=== PATIENT | male | born 1940 | race Caucasian/White ===

== ENCOUNTER → 2018-03-27 09:31 | Outpatient (CLI) | payer MEDICARE, BC, SELFPAY ==
[2018-03-27 11:20] LABS: Absolute Basophil Count 0.03 k/cumm (0.0-0.2); Absolute Eosinophil Count 0.06 k/cumm (0.0-0.7); Absolute Monocyte Count 0.33 k/cumm (0.11-0.7); Absolute Neutrophil Count 2.21 k/cumm (1.2-6.7); Basophils % 0.8; Eosinophils % 1.5; HCT 40.8 % (40.0-50.0); HGB 14.2 g/dL (13.5-17.5); Lymphocytes % 33.1; Mean Corp. HGB Concentration 34.8 g/dL (32.0-36.0); Mean Corpuscular Hemoglobin 32.1 pg (27.0-33.0); Mean Corpuscular Volume 92.1 fL (80-95); Mean Platelet Volume 10.3 fL (8.0-11.0); Monocytes % 8.4; Neutrophils % 56.2; Platelet Count 164 x1000/uL (130-400); RBC 4.43 m/cumm (4.50-6.00); RBC Distribution Width 12.8 % (11.8-14.1); White Blood Cell Count 3.93 k/cumm (4.4-10.8)
[2018-03-27 11:39] LABS: ALT 28 U/L (12-78); AST 28 U/L (15-37); Albumin 3.9 g/dL (3.4-5.0); Alkaline Phosphatase 54 U/L (46-116); Anion Gap 7.4 mmol/L (3-11); BUN 12 mg/dL (7-18); Bilirubin, Total 0.8 mg/dL (0.2-1.0); CO2 29.6 mmol/L (21.0-32.0); CREATININE 0.89 mg/dL (0.70-1.30); Calcium 8.7 mg/dL (8.5-10.1); Chloride 103 mmol/L (98-107); Glucose 93 mg/dL (70-100); Potassium 4.3 mmol/L (3.5-5.1); Sodium 140 mmol/L (136-145); Total Protein 6.9 g/dL (6.4-8.2)
== END ==
PROVIDERS: PCP Internal Medicine; Visit Provider Internal Medicine
DX: D64.9 Anemia, unspecified (principal)
CPT/HCPCS: 36415; 80053; 85025

== ENCOUNTER → 2018-08-30 10:43 | Outpatient (BNVA) | payer MEDICARE, BC, SELFPAY | PROVIDERS: PCP Internal Medicine; Referring Provider Internal Medicine; Visit Provider Student in an Organized Health Care Education/Training Program | DX: M17.12 Unilateral primary osteoarthritis, left knee (principal) | CPT/HCPCS: 20610; 99213; J1040 ==

== ENCOUNTER 2019-04-02 10:34 | Outpatient (CLI) | payer MEDICARE, BC, SELFPAY ==
[2019-04-03 10:21] LABS: PSA, Screening 4.3 ng/ml (0-6.5)
== END 2019-04-02 10:54 ==
PROVIDERS: PCP Internal Medicine; Visit Provider Internal Medicine
DX: Z00.00 Encounter for general adult medical examination without abnormal findings (principal); Z12.5 Encounter for screening for malignant neoplasm of prostate
CPT/HCPCS: 36415; 84153

== ENCOUNTER → 2019-09-03 14:44 | Outpatient (BNVA) | payer MEDICARE, BC, SELFPAY | PROVIDERS: PCP Internal Medicine; Referring Provider Internal Medicine; Visit Provider Student in an Organized Health Care Education/Training Program | DX: M17.12 Unilateral primary osteoarthritis, left knee (principal) | CPT/HCPCS: 99213 ==

== ENCOUNTER → 2020-06-17 14:35 | Outpatient (BNVA) | payer MEDICARE, BC, SELFPAY | PROVIDERS: PCP Nurse Practitioner; Referring Provider Nurse Practitioner; Visit Provider Nurse Practitioner Gerontology | DX: N40.1 Benign prostatic hyperplasia with lower urinary tract symptoms (principal); R35.0 Frequency of micturition; R33.8 Other retention of urine | CPT/HCPCS: 81003; 99204; 99215 ==

== ENCOUNTER 2020-06-17 16:44 | Outpatient (REF) | payer MEDICARE, BC, SELFPAY ==
[2020-06-19 13:27] LABS: Free PSA/PSA Ratio 0.26 ratio
[2020-06-20 10:55] LABS: PSA, Screening 4.2 ng/mL (0-6.5)
== END 2020-06-17 17:04 ==
LOC: LBN 16:44
PROVIDERS: Urology; PCP Nurse Practitioner; Visit Provider Nurse Practitioner Gerontology
DX: N40.1 Benign prostatic hyperplasia with lower urinary tract symptoms (principal); R35.0 Frequency of micturition
CPT/HCPCS: 84153; 84154

== ENCOUNTER 2020-08-21 02:31 | Outpatient (CLI) | payer MEDICARE, BC, SELFPAY ==
[2020-08-22 15:25] LABS: COVID-19 RT-PCR Result NEGATIVE (Negative)
== END 2020-08-21 02:51 ==
PROVIDERS: PCP Nurse Practitioner; Visit Provider Urology
DX: Z11.52 Encounter for screening for COVID-19 (principal); Z01.818 Encounter for other preprocedural examination
CPT/HCPCS: U0003

== ENCOUNTER 2020-08-25 09:48 | Inpatient (IN) | payer MEDICARE, BC, SELFPAY ==
[2020-08-25] VITALS (9 sets, daily range): BP systolic 100–132; BP diastolic 53–76; PULSE 55–90; RESP 10–18; TEMP 35.4–36.7; O2SAT 94–98
--- NOTE | 2020-08-25 10:28 | W.PM.HP.N ---
Assessment and Plan Assessment and plan (1) Urinary retention due to benign prostatic hyperplasia: Status: Acute Assessment and plan: For cystoscopy with transurethral resection of prostate. We will plan on keeping him in the hospital overnight for continuous bladder irrigation. History of Present Illness History of Present Illness Chief Complaint: BPH with LUTS Narrative: Frederic is a 80-year-old male referred to urology by [facility] for BPH with LUTS. Patient has had history of treatment with alpha blockers that has caused him dizziness. Prior to his alpha arjun use he was on Proscar by Dr. Rivera in the early to mid 1999. He notes that he had side effects from the Proscar. He does not remember what they were. He notes that he also had a prostate biopsy due to the elevated PSA numbers. He notes a biopsy was probably in 2008 or . He knows that it was negative for any kind of prostate cancer. He states since then his PSA numbers have been below 5. He is unsure what his PSA number was prior or at the time of his prostate biopsy. He states he is here mainly to discuss a TURP or other related options that can be done to help with his urinary frequency, urgency, slow stream, feeling of incomplete emptying, and nocturia. He does note that he does drink a great deal of coffee first thing in the morning and that if he does drink lots of liquids before bed he will pay for it during the nighttime. Even with reducing his coffee and cutting his fluids off well before bedtime he will still have LUTS that are bothersome. Review of Systems Constitutional Comments: No fevers or chills No vision change or dysphasia No diabetes or thyroid No shortness of breath, cough or hemoptysis No chest pain or palpitations No nausea, vomiting, hepatitis, ulcers, jaundice, diarrhea or constipation No seizures, strokes or peripheral neuropathy No bleeding disorders or anemia No gout or arthralgia [facility] Medical History Family history of diabetes mellitus (06/15/13) Idiopathic scoliosis Primary osteoarthritis of left knee (02/21/17) No treatment now. Raised prostate specific antigen (06/06/12) Surgical History Appendectomy Arthroplasty of knee LEFT S/P cataract surgery November 2019 bilaeral Tonsillectomy and adenoidectomy Family History FAMILY HISTORY Diabetes Hyperlipidemia Mother , age 61 Diabetes Father , age 87 Depression Sister , age 70 No problems noted. Brother No problems noted. Maternal Grandfather , age 79 Heart disease Paternal Grandfather , age74 Heart disease Maternal Grandmother No problems noted. Paternal Grandmother , age 89 No problems noted. Son No problems noted. Social History Smoking/Tobacco Use Status: Former Tobacco Use Tobacco: How many years used: 3 Smoking risk assessment performed?: Yes Alcohol Intake: current Alcohol Intake frequency: holidays/special occasions only Drug use: Never Caregiver/Support person: No Household members: none Communication Needs: None Pets and animals: No Sexually active: Yes Do you think of yourself as: straight/heterosexual Current gender identity: male How often do you talk on the phone with friends or family?: twice per week How often do you get together with friends or relatives?: once per week How often do you attend episcopal or methodist services?: decline to answer Do you belong to any clubs or organized social groups?: yes Panel score (0-1 are the most socially isolated patients): 2 What type of physical activity do you participate in: weight lifting Duration: > 90 minutes/day Frequency: 3-4 times per week Rhina/Muslim: None Special rhina needs: No Seatbelt use: always Helmet use: Yes Helmet use: always Drive intox 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 Meds Home Medications and Allergies Home Medications Medication Instructions Recorded Confirmed Type glucosamine snowden 2KCl-chondroit 1 cap PO DAILY 12/08/12 08/25/20 History multivitamin 1 tab PO DAILY 12/08/12 08/25/20 History omega 2-qxe-yfe-fish oil 1 cap PO DAILY 12/08/12 08/25/20 History coenzyme Q10 [Co Q-10] 100 mg PO DAILY 05/19/15 08/25/20 History sildenafil 25 mg tablet 25 mg PO DAILY PRN #30 tab 04/10/20 08/25/20 Rx Allergies Allergy/AdvReac Type Severity Reaction Status Date / Time finasteride [From Proscar] AdvReac Unknown Verified 08/25/20 10:26 tamsulosin HCl [From Flomax] AdvReac dizziness Verified 08/25/20 10:26 Exam Const General: cooperative, comfortable and no acute distress Neck Neck: supple Resp Effort & Inspection: normal respiratory effort Auscultation: clear to auscultation bilaterally Cardio Rate: regular rate Rhythm: regular rhythm GI Palpation: soft and no masses Neuro General: patient alert, patient awake and patient oriented x3 COVID-19 Screening Have you, or household traveled for leisure in last 14 days?: No Had IN PERSON contact w/suspected or confirmed C-19 person: No
[2020-08-25] MEDS: Lactated Ringers 1,000 ML 80 ML IV ×2 (11:07→14:00)
[2020-08-25] MEDS: ceFAZolin 2 GM/50 ML BAG IVPB (11:30)
[2020-08-25] MEDS: Lidocaine 2% Jelly 6 ML SYR (11:42)
--- NOTE | 2020-08-25 13:00 | PROST_PTH ---
PATIENT: Frederic Randall LOC: U#:[id number] AGE/SX: 80/M ROOM: [id number] RE08/25/[address]: Bayron Liu MD : [id number] BED: A DIS: 08/27/2020 SPEC #: [id number] RECD: 08/25/20 13:20 STATUS: FREDERICK REQ #: [id number] COURT: 08/25/20 13:[address]: Bayron Liu DEPT: Surgical Specimen RECD BY: Yazmin Jaimes ENTERED: 08/25/20 13:22 SP TYPE: PROST OTHR DR: Heidi Feliciano, PhD STONE CIRCULAR SAWYER Tissues: 1 - PROSTATE CURRETTINGS Procedures: GROSS AND MICRO LEVEL 4 IMMUNOPEROXIDASE STAIN Comments: [id number]
--- NOTE | 2020-08-25 13:22 | ROE_ITS ---
Date of service: 08/25/20 Time of Service: 13:23 Operative Note Operative Note DATE OF PROCEDURE: 08/25/20 PRE-OP DIAGNOSIS: BPH with LUTS POST-OP DIAGNOSIS: same PROCEDURE: cystoscopy with TURP/vaporization of prostate SURGEON: Bayron Liu ANESTHESIA: spinal ESTIMATED BLOOD LOSS: 300 PATHOLOGY: other (prostate chiops) Patient was transported to: PACU Patient's condition: stable Implants: 24 Congolese arana catheter with 50 cc sterile water in balloon Indications: This is a 80-year-old gentleman who has a history of lower urinary tract symptoms. He has been unable to tolerate alpha blockers or 5 alpha reductase inhibitors. Symptoms have progressed and have become problematic for him. He presents for transurethral resection of the prostate. Findings: Diffusely enlarged prostate with the left lobe larger than the right Procedure Description: The patient was brought to the operating room on 08/25/2020. After successful induction of spinal anesthesia, he was placed in the dorsal lithotomy position. His genitalia was prepped and draped. 2% Xylocaine jelly was then instilled into the urethra to act as a local anesthetic. A 22 Congolese rigid cystoscope was passed through the urethra into the bladder. Urethra and bladder were inspected with a 30 degree lens. The pendulous, bulbous and membranous urethra was all appeared normal with no strictures. The prostatic urethra showed lateral lobe enlargement with the left lobe being quite a bit larger than the right. The bladder neck was entered and the bladder mucosa was inspected. The bladder was trabeculated with multiple diverticuli and cellules present. No mucosal lesions based lesions were seen. The cystoscope was withdrawn and a 24 Congolese resectoscope sheath was then passed through the urethra into the bladder. We used an [employer] resectoscope and bipolar cautery to resect the prostate from the bladder neck out to the verumontanum. The depth of the resection was down to the prostatic capsule. As we approached the capsule, we switched over to the plasma button and vaporize the tissue for improved hemostasis. All resected tissue was evacuated and sent to pathology for permanent section. The bladder was filled with irrigant and the resectoscope was removed. A 24 Congolese hematuria catheter was passed through the urethra into the bladder. The catheter balloon was inflated with 50 cc of sterile water. Continuous bladder irrigation was begun. Traction was placed on the catheter until the irrigant became clear. A belladonna and opium suppository was placed in the patient's rectum. The patient tolerated this procedure well with no complications. He was taken to the recovery room in stable condition.
[2020-08-25] MEDS: ceFAZolin 1 GM/50 ML BAG IVPB (20:02)
[2020-08-26] MEDS: ceFAZolin 1 GM/50 ML BAG IVPB (04:09)
[2020-08-26] MEDS: Lactated Ringers 1,000 ML 125 ML IV ×4 (06:09→22:32)
[2020-08-26 06:30] LABS: HGB 11.4 g/dL (13.5-17.5); MCH 31.4 pg (27.0-33.0); MCHC 34.5 % (32.0-36.0); MCV 90.9 fL (80-95); MPV 10.6 fL (8.0-11.0); Platelet Count 178 10^3/uL (130-400); RBC 3.63 10^6/uL (4.36-5.78); RDW 12.2 % (11.8-14.1); WBC 10.91 10^3/uL (4.4-10.8)
[2020-08-26 06:51] LABS: Anion Gap 7.9 mmol/L (3-11); BUN 19 mg/dL (7-18); CO2 27.1 mmol/L (21.0-32.0); CREATININE 0.85 mg/dL (0.70-1.30); Calcium 8.3 mg/dL (8.5-10.1); Chloride 104 mmol/L (98-107); Glucose 152 mg/dL (74-106); Potassium 4.2 mmol/L (3.5-5.1); Sodium 139 mmol/L (136-145)
[2020-08-26 07:37] VITALS: BP 123/70; PULSE 72; RESP 18; TEMP 36; O2SAT 98
--- NOTE | 2020-08-26 07:53 | DSE_ITS ---
Date of service: 08/26/20 Time of Service: 07:54 DS: Diagnosis Discharge Diagnosis (1) Urinary retention due to benign prostatic hyperplasia: Status: Acute Discharge Plan Disposition Patient Disposition: HOME Condition: Stable Discharge Details Reason For Visit: BPH WITH LUTS Admit Date/Time: 08/25/20 09:48 Admit Provider: Bayron Liu Attending Provider: Bayron Liu Primary Care Provider: Heidi Feliciano Hospital Course Hospital Course: The patient was admitted and taken to the operating room on 08/25/2020 where he underwent cystoscopy and transurethral resection of the prostate. Following the procedure, he was hospitalized for continuous bladder irrigation overnight. On postop day #1, the irrigant was a light pink. His catheter was hand irrigated for very small clot. We discontinued the continuous bladder irrigation and he will be discharged later today as long as his urine remains transparent. His lab studies on postoperative day #1 including his hemoglobin and his renal function were normal. Home Meds and New Rx's Prescriptions: New sulfamethoxazole-trimethoprim [Bactrim DS] 800-160 mg tablet 1 tab PO QHS Qty: 5 RF: 0 No Action sildenafil 25 mg tablet 25 mg PO DAILY PRN (Reason: sexual activity) Qty: 30 RF: 3 multivitamin 1 EACH tablet 1 tab PO DAILY RF: 0 omega 7-yvx-ioc-fish oil 1,000 MG capsule 1 cap PO DAILY RF: 0 glucosamine snowden 2KCl-chondroit 1 EACH tablet 1 cap PO DAILY RF: 0 coenzyme Q10 [Co Q-10] 100 MG capsule 100 mg PO DAILY RF: 0 Discharge Instructions Additional Instructions: Follow-up in 2 to 5 days for catheter removal (nurse visit) Follow-up appointment in 1 to 2 weeks to review pathology and postop visit Vasquez to leg bag Script for antibiotic sent to local pharmacy Activity:: No lifting over 10 to 20 Equipment/Supplies:: Vasquez to leg bag Diet:: As Tolerated Discharge Data Discharge Comment: Cancel discharge for today if need to restart CBI DS: Summary Status at Discharge Functional status at discharge: independent ambulation Overall status at discharge: patient is progressing back to baseline Mental Status: mental status grossly normal Speech and Movement: speech and movement normal Mood: congruent mood Affect: normal affect Exam Narrative Exam Narrative: On postoperative day #1, he looks well, His vital signs are documented elsewhere His chest wall motion is normal His abdomen is soft with no guarding or rebound tenderness I hand irrigated his catheter and only 1 small clot was obtained He is awake and alert. Psych Mental Status: mental status grossly normal Speech and Movement: speech and movement normal Mood: congruent mood Affect: normal affect DS: Data Vitals/I&O Vitals and I&O: Vital Signs Temperature 36.0 C L 08/26/20 07:37 Temperature Source Tympanic 08/26/20 07:37 Pulse 72 08/26/20 07:37 Pulse Rhythm Regular 08/26/20 04:42 Respiratory Rate 18 08/26/20 07:37 Respiratory Effort Non-Labored 08/26/20 04:42 Respiratory Depth Normal 08/26/20 04:42 Respiratory Pattern Normal 08/26/20 04:42 Blood Pressure 123/70 08/26/20 07:37 Pulse Oximetry 98 08/26/20 07:37 Oxygen Delivery Method Room Air 08/26/20 07:37 Oxygen Flow Rate 0 08/26/20 07:37 Pain Level 0 08/26/20 07:37 Intake & Output 08/25/20 08/25/20 08/26/20 11:59 23:59 11:59 Intake Total 50 / 1540 1490 / 1540 768.75 / 768.75 Balance 50 / 1540 1490 / 1540 768.75 / 768.75 Weight 85.8 kg Intake: IV 50 / 1300 1250 / 1300 768.75 / 768.75 Oral 240 / 240 Other: Urine Color Gibson Dark Red Bright Red Urine Appearance Clear Hematuria Hematuria Comment running consistently gibson red, no patient complaints Emesis Description None Data Completed and Pending Labs on day of discharge: Labs from last 24 hours 08/26/20 08/26/20 06:15 06:15 WBC 10.91 H RBC 3.63 L Hgb 11.4 L Hct 33.0 L MCV 90.9 MCH 31.4 MCHC 34.5 RDW 12.2 Plt Count 178 MPV 10.6 Sodium 139 Potassium 4.2 Chloride 104 Carbon Dioxide 27.1 Anion Gap 7.9 BUN 19 H Creatinine 0.85 Estimated GFR/1.73 m2 >= 60.00 Glucose 152 H Calcium 8.3 L PFSH Medical History Family history of diabetes mellitus (06/15/13) Idiopathic scoliosis Primary osteoarthritis of left knee (02/21/17) No treatment now. Raised prostate specific antigen (06/06/12) Surgical History Appendectomy Arthroplasty of knee LEFT S/P cataract surgery November 2019 bilaeral Tonsillectomy and adenoidectomy Family History FAMILY HISTORY Diabetes Hyperlipidemia Mother , age 61 Diabetes Father , age 87 Depression Sister , age 70 No problems noted. Brother No problems noted. Maternal Grandfather , age 79 Heart disease Paternal Grandfather , age74 Heart disease Maternal Grandmother No problems noted. Paternal Grandmother , age 89 No problems noted. Son No problems noted. Social History Smoking/Tobacco Use Status: Former Tobacco Use Tobacco: How many years used: 3 Smoking risk assessment performed?: Yes Alcohol Intake: current Alcohol Intake frequency: holidays/special occasions only Drug use: Never Caregiver/Support person: No Household members: none Communication Needs: None Pets and animals: No Sexually active: Yes Do you think of yourself as: straight/heterosexual Current gender identity: male How often do you talk on the phone with friends or family?: twice per week How often do you get together with friends or relatives?: once per week How often do you attend taoist or episcopal services?: decline to answer Do you belong to any clubs or organized social groups?: yes Panel score (0-1 are the most socially isolated patients): 2 What type of physical activity do you participate in: weight lifting Duration: > 90 minutes/day Frequency: 3-4 times per week Rhina/Anabaptism: None Special rhina needs: No Seatbelt use: always Helmet use: Yes Helmet use: always Drive intox or ride w/intox 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
[2020-08-26] MEDS: Docusate Sodium 100 MG CAP PO ×2 (08:40→19:52)
[2020-08-26 15:35] VITALS: BP 105/63; PULSE 76; RESP 20; TEMP 36.7; O2SAT 99
--- NOTE | 2020-08-26 18:53 | PDOC.CMIN ---
- If Service Date Differs Date of service: 08/26/20 Time of Service: 18:53 Care Management Initial Assess REASON FOR HOSPITALIZATION:: BPH with LUTS PAST MEDICAL HISTORY/PAST SURGICAL HISTORY:: Medical History. Family history of diabetes mellitus (06/15/13). Idiopathic scoliosis. Primary osteoarthritis of left knee (02/21/17). No treatment now. Raised prostate specific antigen (06/06/12). Surgical History. Appendectomy. Arthroplasty of knee. LEFT. S/P cataract surgery. November 2019 bilaeral. Tonsillectomy and adenoidectomy PREVIOUS FUNCTIONAL STATUS/SOCIAL/FAMILY SUPPORTS:: Frederic lives in [facility]. He has two children, one lives in [place] and one in [place]. Both of his children are supportive. He also has a administrative secretary, who he identifies as a local support. 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 He is independent at baseline. CURRENT FUNCTIONAL STATUS:: Frederic was sitting up in his chair when CM met with him. He stated that he was tired and wanted to rest, but was willing to have a quick conversation. He stated that he spoke with Dr. Liu, who reported that he would remain at [facility] overnight, and would discharge tomorrow. He was happy with this plan. He stated that he has received excellent care at [facility]. CM will continue to follow. ADVANCE DIRECTIVES:: None on file. Has patient been provided with info about the portal/API?: No Did the patient sign up for the portal?: No CODE STATUS:: Full Code INSURANCE COVERAGE / FINANCIAL ISSUES:: [facility]/BC[facility] CURRENT HOME/COMMUNITY SERVICES/EQUIPMENT:: No current services or equipment at this time. PRIMARY CARE PHYSICIAN:: Heidi Feliciano POTENTIAL DISCHARGE NEEDS:: Follow up appointments PATIENT/FAMILY EDUCATION NEEDS:: Review discharge instructions, discussion of self care needs including ask me three. ANTICIPATED BARRIERS TO DISCHARGE:: None identified. TRANSPORTATION:: Via private vehicle. PLAN:: Frederic will return home when medically cleared, likely tomorrow. He will be driven home via private vehicle. He will follow up with Urology and his discharge plan of care. CM will continue to follow.
[2020-08-26 22:45] VITALS: BP 130/62; PULSE 67; RESP 18; TEMP 36.5; O2SAT 95
[2020-08-27 05:41] VITALS: BP 100/57; PULSE 64; RESP 18; TEMP 36.4; O2SAT 98
[2020-08-27] MEDS: Lactated Ringers 1,000 ML 125 ML IV (06:23)
[2020-08-27 07:24] VITALS: BP 113/62; PULSE 71; RESP 18; TEMP 36.9; O2SAT 97
[2020-08-27] MEDS: Docusate Sodium 100 MG CAP PO (08:23)
--- NOTE | 2020-08-27 10:46 | DSE_ITS ---
DS: Diagnosis Discharge Diagnosis (1) Urinary retention due to benign prostatic hyperplasia: Status: Acute Discharge Plan Disposition Patient Disposition: HOME Condition: Stable Discharge Details Reason For Visit: BPH WITH LUTS Admit Date/Time: 08/25/20 09:48 Admit Provider: Bayron Liu Attending Provider: Bayron Liu Primary Care Provider: [facility] Course Hospital Course: The patient was admitted and taken to the operating room on 08/25/2020 where he underwent cystoscopy and transurethral resection of the prostate. Following the procedure, he was hospitalized for continuous bladder irrigation overnight. On postop day #1, the irrigant was a light pink. His catheter was hand irrigated for very small clot. We discontinued the continuous bladder irrigation and he will be discharged later today as long as his urine remains transparent. His lab studies on postoperative day #1 including his hemoglobin and his renal function were normal. Once we discontinued the bladder irrigation, his urine became dark so we restarted the bladder irrigation for an additional 24 hours. When the urine remains transparent on postoperative day #2, I removed the Vasquez catheter. We will discharge him to home after he voids today. Home Meds and New Rx's Prescriptions: New sulfamethoxazole-trimethoprim [Bactrim DS] 800-160 mg tablet 1 tab PO QHS Qty: 5 RF: 0 No Action sildenafil 25 mg tablet 25 mg PO DAILY PRN (Reason: sexual activity) Qty: 30 RF: 3 multivitamin 1 EACH tablet 1 tab PO DAILY RF: 0 omega 7-wkc-orj-fish oil 1,000 MG capsule 1 cap PO DAILY RF: 0 glucosamine snowden 2KCl-chondroit 1 EACH tablet 1 cap PO DAILY RF: 0 coenzyme Q10 [Co Q-10] 100 MG capsule 100 mg PO DAILY RF: 0 Discharge Instructions Instructions: Enlarged Prostate (BPH) (GEN), Urinary Tract Infection in Men (GEN), Vasquez Catheter Placement and Care (GEN), Urinary Leg Bag (GEN) Additional Instructions: Follow-up appointment in 1 to 2 weeks to review pathology and postop visit Script for antibiotic sent to local pharmacy Stand Alone Forms: Nursing Discharge Form Referrals: UROLOGY,[facility] [OTHER] - 08/28/20 8:00 am (Nurse visit, catheter removal.) Bayron Liu MD [ [facility] STAFF PHYSICIAN] - 09/09/20 3:00 pm Activity:: No lifting over 10 to 20 Equipment/Supplies:: Vasquez to leg bag Diet:: As Tolerated Discharge Orders Discharge Orders: Discharge Order (Routine); Ordered 08/27/20 Ordered By: Bayron Liu Discharge Data Discharge Comment: Cancel discharge for today if need to restart CBI DS: Summary Status at Discharge Functional status at discharge: independent ambulation Overall status at discharge: patient is progressing back to baseline Mental Status: mental status grossly normal Speech and Movement: speech and movement normal Mood: congruent mood Affect: normal affect Exam Psych Mental Status: mental status grossly normal Speech and Movement: speech and movement normal Mood: congruent mood Affect: normal affect DS: Data Vitals/I&O Vitals and I&O: Vital Signs Temperature 36.9 C 08/27/20 07:24 Temperature Source Tympanic 08/27/20 07:24 Pulse 71 08/27/20 07:24 Pulse Rhythm Regular 08/27/20 09:59 Respiratory Rate 18 08/27/20 07:24 Respiratory Effort Non-Labored 08/27/20 09:59 Respiratory Depth Normal 08/27/20 09:59 Respiratory Pattern Normal 08/27/20 09:59 Blood Pressure 113/62 08/27/20 07:24 Pulse Oximetry 97 08/27/20 07:24 Oxygen Delivery Method Room Air 08/27/20 07:24 Oxygen Flow Rate 0 08/27/20 07:24 Pain Level 0 08/27/20 07:24 Intake & Output 08/26/20 08/26/20 08/27/20 11:59 23:59 11:59 Intake Total 1488.75 / 3748.75 2260 / 3748.75 2231.25 / 223.25 Output Total 400 / 400 Balance 1488.75 / 3748.75 2260 / 3748.75 1831.25 / 1831.25 Intake: IV 768.75 / 2778.75 2009 2778.75 Oral 720 / 970 250 / 970 250 / 250 Output: Urine 400 / 400 Other: Urine Color [place] Urine Appearance Hematuria Hematuria Clear Comment CBI running clear pink washout, on continuous bladder irrigation on half full rate see note in 3 way Voiding Methods Urinal PFSH Medical History Family history of diabetes mellitus (06/15/13) Idiopathic scoliosis Primary osteoarthritis of left knee (02/21/17) No treatment now. Raised prostate specific antigen (06/06/12) Surgical History Appendectomy Arthroplasty of knee LEFT S/P cataract surgery November 2019 bilaeral Tonsillectomy and adenoidectomy Family History FAMILY HISTORY Diabetes Hyperlipidemia Mother , age 61 Diabetes Father , age 87 Depression Sister , age 70 No problems noted. Brother No problems noted. Maternal Grandfather , age 79 Heart disease Paternal Grandfather , age74 Heart disease Maternal Grandmother No problems noted. Paternal Grandmother , age 89 No problems noted. Son No problems noted. Social History Smoking/Tobacco Use Status: Former Tobacco Use Tobacco: How many years used: 3 Smoking risk assessment performed?: Yes Alcohol Intake: current Alcohol Intake frequency: holidays/special occasions only Drug use: Never Caregiver/Support person: No Household members: none Communication Needs: None Pets and animals: No Sexually active: Yes Do you think of yourself as: straight/heterosexual Current gender identity: male How often do you talk on the phone with friends or family?: twice per week How often do you get together with friends or relatives?: once per week How often do you attend samaritan or zoroastrianism services?: decline to answer Do you belong to any clubs or organized social groups?: yes Panel score (0-1 are the most socially isolated patients): 2 What type of physical activity do you participate in: weight lifting Duration: > 90 minutes/day Frequency: 3-4 times per week Rhina/Islam: None Special rhina needs: No Seatbelt use: always Helmet use: Yes Helmet use: always Drive 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
--- NOTE | 2020-08-27 10:50 | W.PM.PROGNOT ---
Date of Service Date of service: 08/27/20 Time of Service: 10:50 Assessment and Plan Assessment and plan (1) Urinary retention due to benign prostatic hyperplasia: Status: Acute Assessment and plan: He will be discharged later today after he voids. We can cancel tomorrow's appointment for catheter removal. He would need to follow-up in 10 to 14 days for symptom check and to review his surgical pathology. Subjective Subjective Interval history since last seen: We canceled the patient's discharge yesterday when the urine remained dark without bladder irrigation. We ran CBI overnight and he had no episodes of clot retention. His urine has been intermittently dark versus later without bladder irrigation. He is due to have his catheter removed tomorrow in the office, and he is asking if he might be able to have his catheter removed today before discharge. Exam Narrative Exam Narrative: He is in no current distress. He is cooperative. His vital signs are documented elsewhere His urine is pink-tinged but transparent. I went ahead and removed his Vasquez catheter here in the hospital He is awake and alert Objective Last Vital Signs Temp 36.9 C 08/27/20 07:24 Pulse 71 08/27/20 07:24 Resp 18 08/27/20 07:24 BP 113/62 08/27/20 07:24 Pulse Ox 97 08/27/20 07:24
--- NOTE | 2020-08-27 11:19 | NUR.NOTE ---
Dr. Liu at the bedside, verbal order to dc IVF, he dc foleys, ask nursing to make sure follow up appointment is scheduled, he will dc patient after he voids.Nursing Note:
--- NOTE | 2020-08-27 16:49 | PDOC.CMDIS ---
- If Service Date Differs Date of service: 08/27/20 Time of Service: 16:49 LACE Index Scoring Tool - Questions: Length of Stay (in days): 2 Acuity (Admit via E.D.?): No E.D. 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 He will be driven home via private vehicle by family. He will follow up with Urology, his PCP and discharge plan of care. He is happy to be going home. Patient/Family Education Needs: Review discharge instructions regarding activity levels and medications, discussion of self care needs including ask me three.
== END 2020-08-27 12:20 | disposition home or self-care (01) | DRG 714 ==
LOC: PDS 14:14 → MS 14:18
PROVIDERS: Admitting Provider Urology; PCP Nurse Practitioner; Visit Provider Urology
PROC: 0VT08ZZ Resection of Prostate, Via Natural or Artificial Opening Endoscopic (ICD-10-PCS; CPT 52601; principal; 2020-08-25 11:30)
DX: N40.1 Benign prostatic hyperplasia with lower urinary tract symptoms (principal); R33.8 Other retention of urine; M41.20 Other idiopathic scoliosis, site unspecified; Z96.652 Presence of left artificial knee joint
CPT/HCPCS: 52601; 36415; 80048; 85027; 88300; 88305; NC; 88361; J0690; J1100; J1885; J2405; J2704

== ENCOUNTER → 2020-09-09 14:59 | Outpatient (BNVA) | payer MEDICARE, BC, SELFPAY | PROVIDERS: PCP Nurse Practitioner; Referring Provider Nurse Practitioner; Visit Provider Urology | DX: Z48.816 Encounter for surgical aftercare following surgery on the genitourinary system (principal); N40.1 Benign prostatic hyperplasia with lower urinary tract symptoms; R33.8 Other retention of urine ==

== ENCOUNTER → 2020-09-26 08:15 | Outpatient (BNVA) | payer MEDICARE, BC, SELFPAY | PROVIDERS: PCP Nurse Practitioner; Referring Provider Nurse Practitioner; Visit Provider Urology | DX: N40.1 Benign prostatic hyperplasia with lower urinary tract symptoms (principal); R33.8 Other retention of urine ==

== ENCOUNTER 2020-12-26 04:06 | Outpatient (CLI) | payer MEDICARE, BC, SELFPAY ==
--- NOTE | 2020-12-26 10:30 | DI.MRI_ITS ---
Exam(s) MR BRAIN WO EXAM: MR BRAIN WO CLINICAL HISTORY: possible TIA vs CVA affecting right side,G45.9 TECHNIQUE: Multiplanar multisequence MRI of the brain was performed. COMPARISON: No exams were available for comparison FINDINGS: There is moderate generalized cerebral There are patchy areas of abnormal signal seen in periventricular white matter sparing the corpus arabella losum on T2 weighted and FLAIR imaging consistent with microvascular ischemic changes. Additionally there is focal area of abnormal signal seen on T2 weighted and FLAIR imaging in the left thalamus. T his corresponds to an area of diffusion restriction seen on diffusion-weighted imaging with low signa l noted at the corresponding site on ADC map. Findings are consistent with a left thalamic infarctio n, the area affected measures about 9-10 millimeters in greatest diameter. The orbital and temporal bone structures appear intact as does the pituitary. Susceptibility weighted imaging shows no evidence of intracranial hemorrhage. There is normal flow void in the [place] vasculature. IMPRESSION: Diffusion restriction in left thalamus, the findings are consistent with an acute or subacute left th alamic infarct. No evidence of hemorrhage. DATA REPOSITORY:
== END 2020-12-26 04:26 ==
PROVIDERS: PCP Nurse Practitioner; Visit Provider Nurse Practitioner
DX: I63.9 Cerebral infarction, unspecified (principal)
CPT/HCPCS: 70551

== ENCOUNTER 2020-12-30 13:57 | Outpatient (CLI) | payer MEDICARE, BC, SELFPAY ==
--- NOTE | 2020-12-30 13:30 | DI.CT_ITS ---
Exam(s) CT BRAIN CTA EXAM: CT BRAIN CTA CLINICAL HISTORY: tTIA,G45.9. TECHNIQUE: Imaging Protocol: Axial CT angiography was performed with multi-slice acquisition and mu lti-planar and/or 3D reconstructions. CONTRAST MATERIAL: Intravenous: Omnipaque 350 Contrast volume:structured data in ml Intravenous: Omnipaque 350 Contrast volume:85 cc COMPARISON: MR MR BRAIN WO from 12/26/2020 FINDINGS: CT Head W/O and with IV contrast: Ventricles and Extra axial spaces: Normal in size and morphology for the patient's age. Hemorrhage: None. Cerebral parenchyma: Normal. The brain MRI showed a small area of restricted diffusion in the left thalamus. No abnormality is visible by CT. Midline shift: None. Brainstem/Cerebellum: Normal. Calvarium: Normal. Visualized Paranasal sinuses/Mastoids: Clear. Soft Tissues: Unremarkable. Enhancement: No abnormal areas of enhancement. CTA Brain W: Internal Carotid Arteries: Petrous: Normal. Cavernous: Normal. Cerebral: Normal. Middle Cerebral Arteries: Right: No aneurysm, occlusion or significant stenosis. Left: No aneurysm, occlusion or significant stenosis. Anterior Cerebral Arteries: Right: No aneurysm, occlusion or significant stenosis. Left: No aneurysm, occlusion or significant stenosis. Posterior cerebral Arteries: Right: No aneurysm, occlusion or significant stenosis. Left: No aneurysm, occlusion or significant stenosis. Vertebral Arteries: Right: No aneurysm, occlusion or significant stenosis. Left: No aneurysm, occlusion or significant stenosis. Basilar Artery: No aneurysm, occlusion or significant stenosis. IMPRESSION: 1. Normal CTA examination of the [place]. 2. Unremarkable noncontrast CT Head. RADIATION DOSE DELIVERED: LINK-TO-SR Total DLP 2,053.86mGy.cm Total DLP DATA REPOSITORY: All CT scans at this facility are submitted to the National Radiology Data Registry (NRDR) Dose Index Registry (DIR) with the [employer] (ACR). RADIATION OPTIMIZATION: All CT scans at this facility use at least one of these dose optimization te chniques: automated exposure control; mA and/or kV adjustment per patient size (includes targeted exa ms where dose is matched to clinical indication); or iterative reconstruction.
== END 2020-12-30 14:17 ==
PROVIDERS: PCP Nurse Practitioner; Visit Provider Nurse Practitioner
DX: G45.9 Transient cerebral ischemic attack, unspecified (principal)
CPT/HCPCS: 70496

== ENCOUNTER 2021-01-01 01:06 | Outpatient (CLI) | payer MEDICARE, BC, SELFPAY ==
--- NOTE | 2021-01-01 06:57 | DI.CT_ITS ---
Exam(s) CT CAROTID NECK CTA EXAM: CT CAROTID NECK CTA CLINICAL HISTORY: tia. TECHNIQUE: Imaging Protocol: Axial CT angiography was performed with multi-slice acquisition and mu lti-planar and/or 3D reconstructions. CONTRAST MATERIAL: Intravenous: Omnipaque 350 Contrast volume:structured data in ml COMPARISON: CT CT BRAIN CTA from 12/30/2020 FINDINGS: CTA NECK W: AORTIC ARCH ANATOMY: Bovine type arch configuration Anterior circulation: There is no significant stenosis at the origin of the common carotid arteries and both common carotid arteries ascend with normal luminal diameters. There is mild focal calcified plaque on the anterior wall of the left common carotid artery without significant stenosis at this level. At the level the carotid bifurcations there is some mild calcified plaque bilaterally but without significant stenosi s at these levels nor in the proximal internal carotid arteries. Both internal carotid arteries are demonstrated be patent in the upper neck and skull base bilaterally Posterior circulation: Both vertebral arteries originated conventional fashion off of the subclavian arteries without signif icant stenosis at their origins nor in the subclavian arteries proximal to the vertebral artery takeo ff points (which can result in subclavian steal syndrome). Both vertebral arteries ascend in the for amen transversarium with normal equal luminal diameters and both contribute to the formation of the b asilar artery at the skull base. There is no evidence of intraluminal thrombus nor dissection in the vertebral arteries. INTRACRANIAL: Anterior circulation: Both internal carotid arteries are demonstrated to be patent in the skull base and-carotid canals as well as within the cavernous sinuses. Supraclinoid aspect of these vessels are patent and nonaneurys mal. Both middle cerebral arteries are patent out to the sylvian fissure branches. No intraluminal thrombus nor aneurysm in these vessels evident. Both A1 segments are patent. Left is larger than th e right. Both anterior cerebral arteries are patent. There is no evidence of aneurysm at the level of the anterior communicating artery. Posterior circulation: Basilar artery is formed at the skull base by both patent vertebral arteries and the basilar artery a scends with normal luminal diameter, and no evidence of intraluminal thrombus nor dissection. Distal ly basilar artery gives off superior cerebellar arteries and above this level terminates as patent bi lateral posterior cerebral arteries. There are no obvious the posterior communicating arteries on ei ther side of the [id number]. IMPRESSION: 1. Mild atherosclerotic disease at the level of the carotid bifurcation and proximal internal caroti d arteries without no hemodynamically significant stenosis at these levels and no prominent soft plaq ue. 2. Patent vertebral arteries in the neck 3. Patent intracranial vessels as described above. Please note that the field of view of this study appears to be up to and including the icyokw-zz-Uqkq is but not above this level and therefore comment on the brain not included. There are no ring enhan cing lesions in the limited field of view which includes the posterior fossa and brain up to the leve l of the zwloec-ae-[id number]. RADIATION DOSE DELIVERED: 356.14mGy.cm Total DLP DATA REPOSITORY: All CT scans at this facility are submitted to the National Radiology Data Registry (NRDR) Dose Index Registry (DIR) with the [employer] (ACR). RADIATION OPTIMIZATION: All CT scans at this facility use at least one of these dose optimization te chniques: automated exposure control; mA and/or kV adjustment per patient size (includes targeted exa ms where dose is matched to clinical indication); or iterative reconstruction.
[2021-01-01] MEDS: Omnipaque 350 MG/ML 100 ML BTL IJ (09:02)
[2021-01-01] MEDS: Normal Saline Flush 10 ML SYR IVP (09:03)
[2021-01-01] MEDS: Normal Saline - Diluent 50 ML VIAL IV (09:03)
== END 2021-01-01 01:26 ==
PROVIDERS: PCP Nurse Practitioner; Visit Provider Nurse Practitioner
DX: G45.9 Transient cerebral ischemic attack, unspecified (principal); I65.23 Occlusion and stenosis of bilateral carotid arteries
CPT/HCPCS: 70498; J3490

== ENCOUNTER → 2021-01-06 13:28 | Outpatient (BNVA) | payer MEDICARE, BC, SELFPAY | PROVIDERS: PCP Nurse Practitioner; Referring Provider Nurse Practitioner; Visit Provider Psychiatry & Neurology Neurology | DX: I63.9 Cerebral infarction, unspecified (principal) | CPT/HCPCS: 99215 ==

== ENCOUNTER 2021-01-08 00:42 | Outpatient (CLI) | payer MEDICARE, BC, SELFPAY ==
--- NOTE | 2021-01-08 12:29 | DI.US_ITS ---
APPROVED REPORT EXAM: Comprehensive 2D, Doppler, and color-flow Echocardiogram Patient Location: Out-Patient Skip Pit Worker: Mariana Gordon RDCS (AE) Indications: CVA, TIA Other Information Study Quality: Adequate Conclusion Left Ventricle : The left ventricle is normal size. The left ventricular systolic function is normal. The left ventricular ejection fraction is within the normal range. There is normal left ventricular wall thickness. There is normal LV segmental wall motion. The left ventricular diastolic function is normal. LVEF is 62%. Right Ventricle : The right ventricle is normal size. The right ventricular systolic function is norm al. The RVSP is 25.0 mmHg. Atria : Left atrium is mildly dilated. The right atrium size is normal. Mitral Valve : Mild mitral annular calcification. Mild to moderate mitral regurgitation. Mitral regur gitation jet is eccentrically directed. No evidence of mitral valve stenosis. Great Vessels : The aortic root is normal in size. Ascending aorta is not well visualized. Aortic arc h is normal in caliber. IVC is normal in size and collapses >50% with inspiration. See remainder of study for further details. Wall motion Left Ventricle The left ventricle is normal size. The left ventricular systolic function is normal. The left ventric ular ejection fraction is within the normal range. There is normal left ventricular wall thickness. T here is normal LV segmental wall motion. The left ventricular diastolic function is normal. There is no ventricular septal defect visualized. LVEF is 62%. Right Ventricle The right ventricle is normal size. The right ventricular systolic function is normal. The RVSP is 25 .0 mmHg. Atria Left atrium is mildly dilated. The right atrium size is normal. Atrial septal aneurysm is present. Th ere is no Doppler evidence for an atrial septal defect. Aortic Valve The aortic valve is normal in structure. Aortic valve is trileaflet. There is no aortic valvular sten osis. Trace aortic regurgitation. Mitral Valve Mild mitral annular calcification. No evidence of mitral valve stenosis. Mild to moderate mitral regu rgitation. Mitral regurgitation jet is eccentrically directed. Tricuspid Valve The tricuspid valve is normal in structure. There is no tricuspid valve stenosis. Trace to mild tricu spid regurgitation. Pulmonic Valve Pulmonic valve is not well visualized. There is no pulmonic valvular stenosis. There is no pulmonic v alvular regurgitation. Great Vessels The aortic root is normal in size. Ascending aorta is not well visualized. Aortic arch is normal in c aliber. IVC is normal in size and collapses >50% with inspiration. Pericardium There is no pericardial effusion. 2D Dimensions IVSD d PLAX 0.94 cm M: 0.6-1.2 LV Vol A2C d MOD 107.0 mL LVPW d PLAX 0.95 cm M: 0.6 - 1.2 LV Vol A4C d MOD 126.9 mL LVID d PLAX 4.59 cm M: 4.2 - 5.8 LA vol/ BSA A2C s A-L 39.1 mL/m2 LVDs 2.90 cm M: 2.5 - 4.0 LA vol/ BSA A4C s A-L 20.9 mL/m2 Ao Root d 2.97 cm M: 3.1 - 3.7 LA Vol/ BSA Biplane s A-L 29.1 mL/m2 RA Area A4C 13.26 cm2 LA Area A4C s MOD 16.23 cm2 RA Vol/ BSA A4C s A-L 15.0 mL/m2 LA Area A2C s MOD 22.63 cm2 LV EF Teichholz 65.9 % LV EF A4C MOD 62.6 % LVEF (Fontenot's) 61.39 % M: 52 - 72 LV EF A2C MOD 60.0 % LV Volume 87.99 mL M: 62 - 150 LV EF Biplane MOD 61.4 % LV Volume Index 44.21 mL/m2 M: 34 - 74 SV 71.89 mL LV Vol Biplane MOD 117.1 mL SV Index 36.14 mL/m2 FS 36.10 % M-Mode TAPSE 2.45 cm (M/F) >1.7 LV Diastology MV E' medial 0.103 (>0.07 m/s) E/A Ratio 0.7 LV E/e MED 5.45 (<14) MV E Vmax 0.56 (0.4-1.3 m/s) MV E' lateral 0.111 (>0.1 m/s) MV A Vmax 0.75 (0.4-1.3 m/s) LV E/e LAT 5.05 (<14) MV E/A Ratio 0.71 MV E/E' medial 5.48 MV E/E' lateral 5.06 Aortic Valve LVOT Area 3.32 cm2 AoV Area Vmax 2.11 cm2 LVOT Vmax 1.07 m/s AoV Area/ BSA (Vmax) 1.06 cm2/m2 LVOT Mean Rivera. 0.62 m/s SUJATHA Mean Rivera. 1.72 cm2 LVOT Peak Grad 4.6 mmHg SUJATHA Mean Rivera. Index 0.86 cm2/m2 LVOT Mean Grad 1.9 mmHg AR DT 3230 msec LVOT VTI 0.232 m AR PHT 937 msec LVOT Diam s 2.05 cm AoV Vmax 1.68 m/s Velocity Ratio 0.63 AoV Mean Rivera. 1.19 m/s AoV Peak Grad 11.2 mmHg LVOT SV 76.76 mL AoV Mean Grad 6.3 mmHg AoV VTI 0.309 m AoV Area VTI 2.48 cm2 AoV Area/ BSA (VTI) 1.25 cm/m2 Mitral Valve MV DT 318 (160-240 msec) MR Vmax 4.57 m/s MV PHT 92 msec MR VTI 1.174 m MV Area PHT 2.39 cm2 MR Peak Grad 83.6 mmHg MV VTI 0.256 m MR Mean Grad 68.2 mmHg MV VTI Annulus 0.269 m MV Area VTI 3.16 (4.0-6.0 cm2) Pulmonary Valve PV Vmax 1.08 (0.5-1.5 m/s) RVOT Peak Gr. 1.93 mmHg PV Peak Grad 4.6 mmHg RVOT Mean Gr. 0.80 mmHg PV Mean Grad 2.3 mmHg RVOT VTI 0.146 m PV VTI 0.210 m RVOT Vmax 0.69 m/s Tricuspid Valve TR Peak Grad 22.0 mmHg TR Vmax 2.35 m/s RA Pressure 3.00 mmHg RVSP (TR) 25.0 mmHg
== END 2021-01-08 01:02 ==
PROVIDERS: PCP Nurse Practitioner; Visit Provider Nurse Practitioner
DX: Z86.73 Personal history of transient ischemic attack (TIA), and cerebral infarction without residual deficits (principal); I34.0 Nonrheumatic mitral (valve) insufficiency
CPT/HCPCS: 36415; 80061; 93270; 93306; 83036

== ENCOUNTER 2021-01-08 03:01 | Outpatient (CLI) | payer MEDICARE, BC, SELFPAY ==
[2021-01-08 12:24] LABS: Hemoglobin A1C 5.5 % (<5.7)
[2021-01-08 12:27] LABS: Calculated LDL 155 mg/dL (<100); Cholesterol 226 mg/dL (<200); HDL Cholesterol 59 mg/dL (40-60); Triglyceride 63 mg/dL (<150)
--- NOTE | 2021-02-10 08:39 | CER_ITS ---
Date of service: 02/10/21 Time of Service: 08:39 Cardiac Event Recorder Referring Provider:: Alessio Indications:: TIA Cardiac Event Note: This is a 30-day event recorder. It was worn for a total of 15 days. ?The patient was normal sinus rhythm for the majority of the recording with an average heart rate of 61 bpm. ?There is automatically detected 8-second run of SVT that was not reported as symptomatic. ?There are no episodes of ventricular tachycardia, no episodes of atrial fibrillation, no pauses greater than 3 seconds and no evidence of high degree heart block. ?There were 2 manually detected mail processing associate with sinus rhythm.
== END 2021-01-08 03:02 | disposition home or self-care (01) ==
LOC: LOS 03:01
PROVIDERS: PCP Nurse Practitioner; Visit Provider Psychiatry & Neurology Neurology
DX: R73.9 Hyperglycemia, unspecified (principal); N52.9 Male erectile dysfunction, unspecified
CPT/HCPCS: 36415; 80061; 83036

== ENCOUNTER 2021-01-08 03:57 | Outpatient (CLI) | payer MEDICARE, BC, SELFPAY | END 2021-01-08 03:58 | disposition home or self-care (01) | LOC: RT 03:58 | PROVIDERS: PCP Nurse Practitioner; Visit Provider Nurse Practitioner | DX: G45.9 Transient cerebral ischemic attack, unspecified (principal) | CPT/HCPCS: 93270 ==

== ENCOUNTER 2021-02-10 08:39 | Outpatient (CLI) | payer MEDICARE, BC, SELFPAY | END 2021-02-10 08:40 | LOC: CARDO 03-27 16:01 | PROVIDERS: PCP Nurse Practitioner; Referring Provider Nurse Practitioner; Visit Provider Internal Medicine Cardiovascular Disease | DX: G45.9 Transient cerebral ischemic attack, unspecified (principal) | CPT/HCPCS: 93272 ==

== ENCOUNTER → 2021-02-17 09:12 | Outpatient (BNVA) | payer MEDICARE, BC, SELFPAY | PROVIDERS: PCP Nurse Practitioner; Referring Provider Nurse Practitioner; Visit Provider Psychiatry & Neurology Neurology | DX: I63.9 Cerebral infarction, unspecified (principal); M79.89 Other specified soft tissue disorders; I10 Essential (primary) hypertension; Z87.891 Personal history of nicotine dependence | CPT/HCPCS: 99214 ==

== ENCOUNTER 2021-02-17 14:48 | Outpatient (CLI) | payer MEDICARE, BC, SELFPAY ==
--- NOTE | 2021-02-17 10:10 | DI.US_ITS ---
Exam(s) US LOWER EXTREMITY VENOUS LT EXAM: US LOWER EXTREMITY VENOUS LT CLINICAL HISTORY: left leg swelling and pain; recent stroke M79.89. TECHNIQUE: Lower extremity venous ultrasound performed using grayscale, color-flow, and spectral Do ppler analysis. COMPARISON: No exams were available for comparison FINDINGS: The common femoral, femoral and popliteal veins demonstrate normal compressibility, augmentation, and color Doppler. The posterior tibial veins are patent. No saphenous vein thrombosis or other superfi cial venous thrombosis is seen. There is a Day's cyst with debris measuring 4 x 2.3 x 3.4 cm. Yunior ma is seen in the subcutaneous fat of the calf. There is a 2.2 centimeter reactive left groin lymph node.. IMPRESSION: Day's cyst and edema. No evidence of DVT. DATA REPOSITORY:
== END 2021-02-17 15:08 ==
PROVIDERS: PCP Nurse Practitioner; Visit Provider Psychiatry & Neurology Neurology
DX: M71.22 Synovial cyst of popliteal space [Baker], left knee (principal)
CPT/HCPCS: 99214; 93971

== ENCOUNTER 2021-02-23 14:06 | Outpatient (CLI) | payer MEDICARE, BC, SELFPAY ==
--- NOTE | 2021-03-10 14:34 | ZIOP_ITS ---
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 ?The patient was in normal sinus rhythm majority recording with average heart of 65 bpm. ?There were 69 brief episodes of supraventricular tachycardia with the longest lasting 20 beats. None of these were symptomatic. There were rare PACs. ?There are no episodes of ventricular tachycardia and rare PVCs. ?There are no episodes of atrial fibrillation, no pauses greater than 3 seconds and no evidence of high degree heart block. ?There were no patient triggered events.
== END 2021-02-23 14:07 | disposition home or self-care (01) ==
LOC: RT 14:06
PROVIDERS: PCP Nurse Practitioner; Visit Provider Psychiatry & Neurology Neurology
DX: I63.9 Cerebral infarction, unspecified (principal); M71.22 Synovial cyst of popliteal space [Baker], left knee; M17.12 Unilateral primary osteoarthritis, left knee; I51.7 Cardiomegaly
CPT/HCPCS: 20610; 93246

== ENCOUNTER 2021-03-10 15:10 | Outpatient (CLI) | payer MEDICARE, BC, SELFPAY | END 2021-03-10 15:11 | disposition home or self-care (01) | LOC: CARDO 03-12 13:50 | PROVIDERS: PCP Nurse Practitioner; Referring Provider Psychiatry & Neurology Neurology; Visit Provider Internal Medicine Cardiovascular Disease | DX: I63.9 Cerebral infarction, unspecified (principal); I51.7 Cardiomegaly; I47.2 Ventricular tachycardia; I49.1 Atrial premature depolarization | CPT/HCPCS: 93248 ==

== ENCOUNTER → 2021-04-07 12:16 | Outpatient (BNVA) | payer MEDICARE, BC, SELFPAY | PROVIDERS: PCP Nurse Practitioner; Visit Provider Psychiatry & Neurology Neurology | DX: I63.9 Cerebral infarction, unspecified (principal); Z79.82 Long term (current) use of aspirin | CPT/HCPCS: 99213 ==

== ENCOUNTER 2021-04-24 19:19 | Outpatient (REF) | payer MEDICARE, BC, SELFPAY ==
[2021-04-24 20:27] LABS: Calculated LDL 120 mg/dL (<100); Cholesterol 188 mg/dL (<200); HDL Cholesterol 56 mg/dL (40-60); Hemoglobin A1C 5.5 % (<5.7); Triglyceride 61 mg/dL (<150)
== END 2021-04-24 19:20 | disposition home or self-care (01) ==
LOC: LBN 19:19
PROVIDERS: PCP Nurse Practitioner; Visit Provider Nurse Practitioner
DX: N52.9 Male erectile dysfunction, unspecified; R73.09 Other abnormal glucose
CPT/HCPCS: 80061; 83036

== ENCOUNTER 2022-02-24 08:16 | Outpatient (CLI) | payer MEDICARE, BC, SELFPAY ==
--- NOTE | 2022-02-24 08:00 | DI.RAD_ITS ---
Exam(s) XR SHOULDER RT COMPLETE 2+V EXAM: XR SHOULDER RT COMPLETE 2+V CLINICAL HISTORY: right shoulder pain. TECHNIQUE: 2D digital imaging was performed. Two views. COMPARISON: No exams were available for comparison FINDINGS: BONES: There is deformity of the distal clavicle consistent with an old healed fracture. There is so me spurring at the inferior clavicle as well as tip of the acromion. No acute fracture is present. N o bony destructive lesion is seen. JOINTS: No dislocation present. There are degenerative changes of the glenohumeral joint but no sign ificant joint space narrowing. SOFT TISSUE: Abnormal calcification along the course of the supraspinatus tendon consistent with calc ific tendinosis. IMPRESSION: Degenerative changes and calcific tendinosis. DATA REPOSITORY: RADIATION DOSE DELIVERED:
== END 2022-02-24 08:17 | disposition home or self-care (01) ==
LOC: DIORS 08:17
PROVIDERS: PCP Nurse Practitioner; Referring Provider Nurse Practitioner; Visit Provider Student in an Organized Health Care Education/Training Program
DX: M75.31 Calcific tendinitis of right shoulder; M75.21 Bicipital tendinitis, right shoulder; M19.011 Primary osteoarthritis, right shoulder
CPT/HCPCS: 20610; 99204; 99214; 73030; J1030

== ENCOUNTER 2022-04-02 17:08 | Outpatient (REF) | payer MEDICARE, BC, SELFPAY ==
[2022-04-04 10:22] LABS: COVID-19 RT-PCR UVMMC Result Negative (Negative)
== END 2022-04-02 17:09 | disposition home or self-care (01) ==
LOC: LBN 17:08
PROVIDERS: PCP Nurse Practitioner; Visit Provider Physician Assistant
DX: Z20.822 Contact with and (suspected) exposure to COVID-19 (principal); J04.0 Acute laryngitis
CPT/HCPCS: U0003

== ENCOUNTER 2022-07-25 11:25 | Emergency (ER) | payer MEDICARE, BC, SELFPAY ==
[2022-07-25 11:42] VITALS: BP 142/83; PULSE 84; RESP 16; TEMP 36.7; O2SAT 96
--- NOTE | 2022-07-25 11:59 | ED.GENADUL_ITS ---
Discharge Plan Disposition Patient Disposition: Home Condition: Stable Discharge Details Clinical Impression: COVID Primary Care Provider: Soheila Dooley ED Provider: Robinson Caballero Home Meds and New Rx's Prescriptions: Continued aspirin 81 mg tablet,chewable 81 mg PO DAILY multivitamin 1 EACH tablet 1 tab PO DAILY omega 5-srk-vko-fish oil 1,000 MG capsule 1 cap PO DAILY glucosamine snowden 2KCl-chondroit 1 EACH tablet 1 cap PO DAILY Held sildenafil 25 mg tablet 25 mg PO DAILY PRN (Reason: sexual activity) Qty: 30 3RF Hold Instructions: Resume on 07/31/22. Rx Instructions: administer 30 minutes to 4 hours before activity Discharge Instructions Instructions: COVID-19 (Coronavirus Disease 2019) (ED) Additional Instructions: Paxlovid as directed. Do not take your Viagra while taking this medication. Rest, plenty of fluids to avoid dehydration, [id number]-[id number] medication as directed for symptomatic control. Please watch for new or worsening symptoms and return to the ER for any concerns. Lastly, I would like you to contact your primary care provider tomorrow to make them aware of your ER visit, symptoms, need for outpatient reevaluation. Medical Decision Making <LEIA Arzate - Last Filed: 07/25/22 13:48> 82-year-old gentleman presents reporting a dry cough yesterday, currently asymptomatic, but his significant other wanted him tested for COVID. She also reports that a few days ago while skiing he had some pain in his bilateral lower legs but this has resolved completely as well. Denies any pain or swelling in his calves. Plan to obtain a rapid flu and COVID. Flu negative, COVID-positive. Patient is fully vaccinated. Discussed options, he would like to move forward with Paxlovid. Will obtain CBC and CMP. Pharmacy was contacted, they recommend the patient not take Viagra while on Paxlovid. This was relayed to the patient. CBC and CMP reviewed, Paxlovid given. Standard discharge and return precautions were provided. Patient understands, is agreeable to this plan, and has no additional questions or concerns upon discharge. This documentation was generated using [employer] system, please disregard any oddities of phrase or misspellings. Medical Records Medical records reviewed: Yes I reviewed the patient's medical records. HPI <LEIA Arzate - Last Filed: 07/25/22 13:48> General Mode of arrival: ambulatory . Date/Time Provider Initiated Documentation: 07/25/22 11:49 . Limitations to Documentation: no limitations . Information obtained by: patient . HPI Narrative: This is an 82-year-old male, denies significant past medical history reports that he had a dry cough yesterday, symptoms have resolved completely today but his significant other wanted him to test for COVID. He states that he went to test at home but the test was so he came to the ER for testing. He also reports that a few days ago while skiing he noticed bilateral leg pain, this too has resolved completely. Denies fever, chest pain, shortness of breath, pain or swelling in his calves. Related Data Home Medications Medication Instructions Recorded Confirmed glucosamine sulf dipotassium Cl 1 cap PO DAILY 12/08/12 07/25/22 500 mg-chondroitin sulf 400 mg tablet multivitamin 1 tab PO DAILY 12/08/12 07/25/22 omega 9-ukr-anf-fish oil 1,000 mg 1 cap PO DAILY 12/08/12 07/25/22 (120 mg-180 mg) capsule aspirin 81 mg chewable tablet 81 mg PO DAILY 01/06/21 07/25/22 sildenafil 25 mg tablet 25 mg PO DAILY PRN sexual activity 06/17/22 07/25/22 #30 tabs Previous Rx's Medication Instructions Recorded sildenafil 25 mg tablet 25 mg PO DAILY PRN sexual activity 06/17/22 #30 tabs Allergies Allergy/AdvReac Type Severity Reaction Status Date / Time finasteride [From Proscar] AdvReac Unknown Verified 07/25/22 11:47 tamsulosin HCl [From Flomax] AdvReac dizziness Verified 07/25/22 11:47 General Stated Complaint: Orthopedic JAMES: 3 Review of Systems <LEIA Arzate - Last Filed: 07/25/22 13:48> Constitutional Constitutional: Denies fever(s) Cardiovascular Cardiovascular: Denies chest pain and Denies dyspnea Respiratory Respiratory: Reports cough and Denies dyspnea Gastrointestinal Gastrointestinal: Denies abdominal pain, Denies nausea and Denies vomiting Musculoskeletal Musculoskeletal: Denies numbness and Denies tingling Integumentary/Breasts Skin/Breast: Denies rash Neurologic Neurologic: Denies numbness and Denies tingling PFSH <LEIA Arzate - Last Filed: 07/25/22 13:48> All Active Problems (Updated 07/25/22 @ 12:53 by LEIA Arzate) COVID (Acute) Arthritis of right acromioclavicular joint (Acute) Calcific tendonitis of right shoulder (Acute) Tendinitis of long head of biceps brachii of right shoulder (Acute) Lesion of eyelid (Acute) Primary osteoarthritis of left knee (Chronic 02/21/17) Erectile dysfunction (Chronic) Stroke (Chronic) Medical History Family history of diabetes mellitus (06/15/13) Idiopathic scoliosis Raised prostate specific antigen (06/06/12) Surgical History Appendectomy Arthroplasty of knee LEFT S/P cataract surgery November 2019 bilaeral S/P TURP Tonsillectomy and adenoidectomy Family History FAMILY HISTORY Diabetes Hyperlipidemia Mother , age 61 Diabetes Father , age 87 Depression Sister , age 70 No problems noted. Brother No problems noted. Maternal Grandfather , age 79 Heart disease Paternal Grandfather , age74 Heart disease Maternal Grandmother No problems noted. Paternal Grandmother , age 89 No problems noted. Son No problems noted. Social History Smoking/Tobacco Use Status: Former Tobacco Use Tobacco: How many years used: 3 Second Hand Exposure: Yes Smoking risk assessment performed?: Yes Alcohol Intake: current Alcohol Intake frequency: a few times a week Alcohol type: wine Drug use: Never Substance use type: does not use Caregiver/Support person: No Household members: none Housing: house Number of Children: 2 Communication Needs: None Do you need help understanding health information?: Never current occupation: Retired described his first kid when he was 52 Pets and animals: No Sexually active: Yes Do you think of yourself as: straight/heterosexual Current gender identity: male What is your relationship status?: How often do you talk on the phone with friends or family?: three or more times per week How often do you get together with friends or relatives?: twice per week How often do you attend alevism or uatsdin services?: decline to answer Do you belong to any clubs or organized social groups?: yes Panel score (0-1 are the most socially isolated patients): 2 What type of physical activity do you participate in: weight lifting, other Details: golf and running Duration: > 90 minutes/day Frequency: 5-6 times per week Rhina/Caodaism: Presybeterian Special rhina needs: No Seatbelt use: always Helmet use: Yes Helmet use: always Drive intox or ride w/intox cdl company driver: No Do you feel safe at home: Yes Do you feel safe in your relationship?: Yes Exam <LEIA Arzate - Last Filed: 07/25/22 13:48> Const General: cooperative, healthy appearing, comfortable and no acute distress Orientation: alert, awake and oriented x3 HENMT Head: normal to inspection, normocephalic and atraumatic Face and sinus: normal facial exam Mouth: moist mucous membranes Throat: posterior oropharynx normal Eyes General: appearance normal, both eyes and all related structures Conjunctivae: conjunctivae normal Neck Neck: normal visual inspection, full ROM, no meningeal signs, trachea midline, supple and nontender Resp Effort & Inspection: normal respiratory effort and able to speak in complete sentences Auscultation: clear to auscultation bilaterally Cardio Rate: regular rate Rhythm: regular rhythm Skin General skin exam: no rashes or lesions noted Neuro General: patient alert, patient awake, moves all extremities and no focal motor deficits Cognition: normal cognition Speech: speech normal Gait: normal gait Motor: muscle tone normal throughout Sensory Exam: no sensory deficits noted Extrem General: normal to inspection, full ROM, capillary refill normal, no pedal edema and no calf tenderness Psych Appearance: grossly normal Mental Status: mental status grossly normal Course <LEIA Arzate - Last Filed: 07/25/22 13:48> Vital Signs Vital signs: Vital Signs Temperature 36.7 C 07/25/22 11:42 Pulse 84 07/25/22 11:42 Respiratory Rate 16 07/25/22 11:42 Blood Pressure 142/83 H 07/25/22 11:42 Pulse Oximetry 96 07/25/22 11:42 Temperature 36.7 C 07/25/22 11:42 Temperature Source Oral 07/25/22 11:42 Pulse 84 07/25/22 11:42 Respiratory Rate 16 07/25/22 11:42 Respiratory Effort Non-Labored 07/25/22 11:46 Blood Pressure 142/83 H 07/25/22 11:42 Blood Pressure Position Sitting 07/25/22 11:42 Pulse Oximetry 96 07/25/22 11:42 Oxygen Delivery Method Room Air 07/25/22 11:42 Oxygen Flow Rate 0 07/25/22 11:42 Pain Level 4 07/25/22 11:42 PAWSS <LEIA Arzate - Last Filed: 07/25/22 13:48> Have you Been Recently Intoxicated or Drunk Within the Last 30 days?: No Have you Ever Experienced Previous Episodes of Alcohol Withdrawal?: No Have you ever Experienced Withdrawal Seizures?: No Have you ever Experienced Delirium Tremens(DT)s?: No Have you ever undergone Alcohol Rehabilitation Treatment (i.e, inpt ot outpatient treatment programs)?: No Have you ever Experienced Blackouts?: No Have you ever Combined Alcohol with other Downers within the last 90 days?: No Have you ever Combined Alcohol with any other Substance of Abuse during the last 90 days?: No Positive Blood Alcohol level on Presentation? [PCS.BAL]: No Evidence of Increased Autonomic Activity (i.e. HR>120, tremor, sweating, agitation, nausea)?: No Result: 0 <Remberto Anderson DO - Last Filed: 07/25/22 12:58> Result: 0
[2022-07-25 13:16] LABS: Abs Immature Grans 0.02 10^3/uL (0.0-0.06); Absolute Basophil Count 0.01 10^3/uL (0.0-0.2); Absolute Eosinophil Count 0.01 10^3/uL (0.0-0.7); Absolute Lymphocyte Count 0.93 10^3/uL (1.2-3.4); Absolute Monocyte Count 0.58 10^3/uL (0.1-0.8); Absolute Neutrophil Count 4.29 10^3/uL (1.2-6.7); Basophils % 0.2; Eosinophils % 0.2; HCT 40.5 % (40.0-50.0); HGB 13.7 g/dL (13.5-17.5); Immature Grans % 0.3; Lymphocytes % 15.9; MCH 30.7 pg (27.0-33.0); MCHC 33.8 % (32.0-36.0); MCV 91 fL (80-95); MPV 9.7 fL (8.0-11.0); Monocytes % 9.9; Neutrophils % 73.5; Platelet Count 144 10^3/uL (130-400); RBC 4.46 10^6/uL (4.36-5.78); RDW 12.6 % (11.8-14.1); RDW-SD 41.4 fL; WBC 5.84 10^3/uL (4.4-10.8)
[2022-07-25 13:33] LABS: ALT 22 U/L (16-63); AST 20 U/L (15-37); Albumin 4.2 g/dL (3.4-5.0); Alkaline Phosphatase 49 U/L (46-116); Anion Gap 8.5 mmol/L (3-11); BUN 12 mg/dL (7-18); Bilirubin, Total 0.8 mg/dL (0.2-1.0); CO2 30.5 mmol/L (21.0-32.0); CREATININE 1.1 mg/dL (0.70-1.30); Calcium 9.1 mg/dL (8.5-10.1); Chloride 100 mmol/L (98-107); Estimated GFR 67.86 (mL/min/1.73m2); Glucose 103 mg/dL (74-106); Potassium 4.3 mmol/L (3.5-5.1); Sodium 139 mmol/L (136-145); Total Protein 7.5 g/dL (6.4-8.2)
== END 2022-07-25 14:30 | disposition home or self-care (01) ==
PROVIDERS: Emergency Provider Physician Assistant; PCP Nurse Practitioner Family
DX: U07.1 COVID-19 (principal)
CPT/HCPCS: 36415; 80053; 99283; 85025; 99284

== ENCOUNTER 2023-09-06 10:11 | Emergency (ER) | payer MEDICARE, BC, SELFPAY ==
[2023-09-06 10:17] VITALS: BP 150/75; PULSE 70; RESP 18; TEMP 36.9; O2SAT 98
--- NOTE | 2023-09-06 10:24 | ED.GENADUL_ITS ---
HPI General Date/Time Provider Initiated Documentation: 09/06/23 10:24 . HPI Narrative: 83 year-old male presents to ED today by POV/ambulating with a chief complaint of runny nose progressing to a bit of a sore throat, with some hoarseness to voice, and body aches with onset noted for the past couple days. Quality described as sore throat most focal symptom, no radiation to dysphagia, neck swelling, excessive drooling, fever, nausea/vomiting, poor PO intake, cough. Severity is described as moderate. Palliating factors include nothing specific. Provoking factors include nothing specific. Events leading up to the incident/Associated Symptoms: Patient is vaccinated for Covid-19, has not tested at home. Patient not anticoagulated. Related Data Home Medications Medication Instructions Recorded Confirmed aspirin 81 mg chewable tablet 81 mg PO DAILY 01/06/21 09/06/23 sildenafil 25 mg tablet 25 mg PO DAILY PRN sexual activity 06/17/22 09/06/23 #30 tabs Previous Rx's Medication Instructions Recorded sildenafil 25 mg tablet 25 mg PO DAILY PRN sexual activity 06/17/22 #30 tabs Allergies Allergy/AdvReac Type Severity Reaction Status Date / Time finasteride [From Proscar] AdvReac Unknown Verified 09/06/23 10:21 tamsulosin HCl [From Flomax] AdvReac dizziness Verified 09/06/23 10:21 General Stated Complaint: RespSymp JAMES: 3 Review of Systems All systems reviewed & are unremarkable except as noted in HPI and below Exam Narrative Exam Narrative: GENERAL APPEARANCE: Well-nourished, non-toxic, awake and alert, atraumatic, no acute distress. SKIN: Warm, pink, dry, intact, without rashes/lesions/ulcerations. HEAD: Normocephalic, atraumatic, normal hair distribution for gender/age. EYES: Pupils PERRLA, EOMs intact without nystagmus, normal conjunctiva, no exudates on lids/lashes. ENT: Nares patent, no circumoral cyanosis, no facial swelling, no tonsillar swelling or exudate, mild erythema to posterior oropharynx, no neck swelling, mild L cervical lymphadenopathy, uvula midline, mild hoarseness to voice. NECK: Supple, trachea midline, painless cervical ROM. LUNGS/CHEST: Non-labored respirations, no active cough, normal A/P diameter, symmetrical expansion, no chest wall deformity HEART (CV/PV): No peripheral edema, no JVD. ABDOMEN: Soft, non-distended, no guarding. MSK: Normal ROM, no swelling/deformity to bilateral UEs or LEs, moving all extremities without weakness, no cyanosis, spine midline without tenderness, normal curvature. NEURO: Mental Status AAOx4 - alert to person, place, time, events No facial droop, no forehead involvement. Motor: No focal weakness - strength 5/5 in bilateral UEs and LEs, proximal and distal, symmetric. Sensory: sensation intact to light touch globally. Gait normal: patient ambulated without ataxia into ED room. PSYCH: euthymic, cooperative, pleasant, appropriate speech Course Vital Signs Vital signs: Vital Signs Temperature 36.9 C 09/06/23 10:17 Pulse 70 09/06/23 10:17 Respiratory Rate 18 09/06/23 10:17 Blood Pressure 150/75 H 09/06/23 10:17 Pulse Oximetry 98 09/06/23 10:17 Temperature 36.9 C 09/06/23 10:17 Temperature Source Oral 09/06/23 10:17 Pulse 70 09/06/23 10:17 Respiratory Rate 18 09/06/23 10:17 Respiratory Effort Normal 09/06/23 10:20 Blood Pressure 150/75 H 09/06/23 10:17 Blood Pressure Position Sitting 09/06/23 10:17 Pulse Oximetry 98 09/06/23 10:17 Oxygen Delivery Method Room Air 09/06/23 10:17 Oxygen Flow Rate 0 09/06/23 10:17 Medical Decision Making This dictation utilizes [id number] dictation software and may contain unedited grammatical errors. 83 y/o M presents to ED today with a chief complaint of runny nose progressing to sore throat, hoarse voice, denies cough, shortness of breath, chest pain, endorses body aches without fever, tolerating PO intake without difficulty swall owing. Patient has not tested for Covid or Flu. Patients' medical history: History of stroke. Family and social history: noncontributory. Pertinent exam findings / vital signs include ENT: Nares patent, no circumoral cyanosis, no facial swelling, no tonsillar swelling or exudate, mild erythema to posterior oropharynx, no neck swelling, mild L cervical lymphadenopathy, uvula midline, mild hoarseness to voice.. Differential / pathologies of concern include Viral Syndrome, URI, Not Sepsis, Not Respiratory Distress. Diagnostic studies of: -Covid/Flu Rapid Ag, Rapid Strep - all negative. Interventions of: -none. ED Course/Assessment/Plan: 83-year-old male who is very healthy for his age presents with URI symptoms for couple days, sore throat is most focal and body aches but has no fever, is tolerating p.o. intake, uvula is midline I do not suspect peritonsillar abscess or retropharyngeal abscess, I did elder counselor him on strict return criteria for any excessive drooling or progressing difficulty swallowing to solids or liquids or respiratory distress, counseled on likely viral syndrome and recommend Tylenol and ibuprofen as needed for symptomatic relief and jdur-fhm-[id number] cold m edicines. Findings not consistent with peritonsillar abscess, retropharyngeal abscess, toxic illness, respiratory distress. Disposition of upper respiratory infection. Patient verbalized understanding of the plan and return to ED criteria and engaged in shared decision making. Medical Records Medical records reviewed: Yes I reviewed the patient's medical records. Lab Data Lab results reviewed: Yes I reviewed the patient's lab results. Labs: 09/06/23 10:39 Tonsil - Not Specified Group A Streptococcus Culture - Pending Quality:SDOH Health Related Social Needs: No Data to Display PFSH All Active Problems (Updated 09/06/23 @ 11:35 by LEIA Montero) Upper respiratory infection (Acute) Erectile dysfunction (Chronic) Stroke (Chronic) declines Lipitor Medical History (Updated 09/06/23 @ 11:35 by LEIA Montero) COVID Arthritis of right acromioclavicular joint Calcific tendonitis of right shoulder Tendinitis of long head of biceps brachii of right shoulder Lesion of eyelid Primary osteoarthritis of left knee (02/21/17) Family history of diabetes mellitus (06/15/13) Idiopathic scoliosis Raised prostate specific antigen (06/06/12) Surgical History S/P TURP S/P cataract surgery November 2019 bilaeral Tonsillectomy and adenoidectomy Arthroplasty of knee LEFT Appendectomy Family History FAMILY HISTORY Diabetes Hyperlipidemia Mother , age 61 Diabetes Father , age 87 Depression Sister , age 70 No problems noted. Brother No problems noted. Maternal Grandfather , age 79 Heart disease Paternal Grandfather , age74 Heart disease Maternal Grandmother No problems noted. Paternal Grandmother , age 89 No problems noted. Son No problems noted. Social History (Updated 06/22/23 @ 13:03 by Chichi Dugan) Smoking/Tobacco Use Status: Former Tobacco Use Tobacco: How many years used: 3 Second Hand Exposure: Yes Smoking risk assessment performed?: Yes Alcohol Intake: current Alcohol Intake frequency: a few times a month Alcohol type: wine Drug use: Never Substance use type: does not use Caregiver/Support person: No Household members: none Housing: house Number of Children: 2 Communication Needs: None Do you need help understanding health information?: Never current occupation: Retired described his first kid when he was 52 Pets and animals: No Sexually active: Yes Do you think of yourself as: straight/heterosexual Current gender identity: male What is your relationship status?: How often do you talk on the phone with friends or family?: three or more times per week How often do you get together with friends or relatives?: twice per week How often do you attend gnosticist or tenriism services?: decline to answer Do you belong to any clubs or organized social groups?: yes Panel score (0-1 are the most socially isolated patients): 2 What type of physical activity do you participate in: weight lifting, other Details: golf and running Duration: > 90 minutes/day Frequency: 5-6 times per week Rhina/Hoahaoism: Sabianism Special rhina needs: No Agree to transfusion: Yes Seatbelt use: always Helmet use: Yes Helmet use: always Drive intox or ride w/intox line driver: No Working smoke detector in home: Yes Firearms in home: Yes Do you feel safe at home: Yes Do you feel safe in your relationship?: Yes Victim of physical abuse: No Victim of emotional abuse: No Victim of sexual abuse: No Discharge Plan Disposition Patient Disposition: Home Discharge Details Clinical Impression: Upper respiratory infection Primary Care Provider: Soheila Dooley ED Provider: Remberto Stone Home Meds and New Rx's Prescriptions: Continued aspirin 81 mg tablet,chewable 81 mg PO DAILY sildenafil 25 mg tablet 25 mg PO DAILY PRN (Reason: sexual activity) Qty: 30 3RF Hold Instructions: Resume on 07/31/22. Rx Instructions: administer 30 minutes to 4 hours before activity Discharge Instructions Instructions: Upper Respiratory Infection (ED) Additional Instructions: You were seen in the emergency department for your upper respiratory infection, this is most likely a common cold virus, you had a runny nose progressing to sore throat, please keep an eye on your left neck area for any increasing swelling as well as difficulty swallowing liquids or solids. Please return for any respiratory distress. You are negative for COVID and flu, negative for rapid strep and we did send a culture on the rapid strep which should result in a couple days for which we would prescribe antibiotics for a positive result. Otherwise please take Tylenol and ibuprofen and [id number] cold medicines as needed, return for any worsening. Referrals: Soheila Dooley NP [Primary Care Provider] - Discharge Data Discharge Date/Time-TO BE ENTERED AT DEPARTURE: 09/06/23 11:47
== END 2023-09-06 11:47 | disposition home or self-care (01) ==
PROVIDERS: Emergency Provider Physician Assistant; PCP Nurse Practitioner Family
DX: J06.9 Acute upper respiratory infection, unspecified (principal); Z79.82 Long term (current) use of aspirin; Z87.891 Personal history of nicotine dependence; Z11.52 Encounter for screening for COVID-19
CPT/HCPCS: 87426; 87880; 99283; 87081

== ENCOUNTER 2024-06-25 20:05 | Outpatient (REF) | payer MEDICARE, BC, SELFPAY ==
[2024-06-25 20:17] LABS: Bilirubin Color Interference (Negative); Blood Color Interference (Negative); Clarity Cloudy (Clear); Glucose Color Interference mg/dL (Negative); Ketones Color Interference mg/dL (Negative); Leukocyte Esterase Color Interference (Negative); Nitrite Color Interference (Negative); Specific Gravity 1.011 (1.005-1.025); Urobilinogen Color Interference mg/dL (Up to 0.2)
[2024-06-25 20:18] LABS: C & S Indicated? Yes; RBC >50 HPF (0-2)
== END 2024-06-25 20:06 | disposition home or self-care (01) ==
LOC: LBN 20:05
PROVIDERS: PCP Nurse Practitioner Family; Visit Provider Nurse Practitioner Family
DX: R30.0 Dysuria (principal)
CPT/HCPCS: 81003; 81015; 87086

== ENCOUNTER 2024-07-16 01:28 | Outpatient (CLI) | payer MEDICARE, BC, SELFPAY ==
--- NOTE | 2024-07-16 06:15 | DI.CT_ITS ---
Exam(s) CT ABDOMEN PELVIS WO EXAM: CT ABDOMEN PELVIS WO CLINICAL HISTORY: Gross hematuria,R31.0. TECHNIQUE: Imaging Protocol: Axial computed tomography images with coronal and sagittal reformatted images were created and reviewed CONTRAST MATERIAL: Intravenous: none Oral: None COMPARISON: CT CT CAROTID NECK CTA from 01/01/2021 FINDINGS: VISUALIZED LUNG BASES: No nodules nor pleural effusions evident. ABDOMEN: There is no ascites. LIVER: There are no obvious focal hepatic lesions evident of this noninfused study. GALLBLADDER/BILIARY: No obvious gallbladder pathology. CBD is not dilated. PANCREAS: No evidence of pancreatic mass nor dilatation of the pancreatic duct. SPLEEN: Spleen size upper normal. Craniocaudal measurement of the spleen is 12.8 cm. ADRENALS: There are no significant adrenal masses. KIDNEYS:Left kidney appears unremarkable. In the lateral cortex of the right kidney there is a subtl e hyperdense area measuring 1.8 by 1.8 cm. Either hyperdense solid nodule or hemorrhagic cyst. Ther e are no renal calculi nor hydronephrosis nor hydroureter.. ABDOMINAL AORTA: Abdominal aorta is not enlarged. LYMPH NODES: There is no retroperitoneal nor paraaortic adenopathy. ABDOMINAL WALL: There is a right inguinal hernia which contains part of the right-side of the urinary bladder. Does not contain bowel loops. GI: There is no evidence of bowel obstruction, free air, nor abscess. There is abundant fecal material noted throughout the colon but no gross over distention of the colon . No obvious colitis pattern. PELVIS: LYMPH NODES: There is no intrapelvic nor inguinal adenopathy. GI: No evidence of appendicitis.No evidence of sigmoid diverticulitis. URINARY BLADDER: Urinary bladder wall is diffusely thickened and as mentioned above there is part of the right-side of the urinary bladder extending into the right inguinal hernia canal. REPRODUCTIVE: Prostate gland is enlarged, 6 cm wide by 5.5 cm AP and the prostatic urethra channel is enlarged. Probably related to prior TURP. OSSEOUS: No significant osseous lesions. No fractures. Multilevel chronic degenerative disc disease and mild anterolisthesis L4 upon L5 due t o facet arthropathy. No significant osseous lesions evident. IMPRESSION: 1. The anterior right side of the urinary bladder extends a few cm into a right inguinal hernia. Thi s extends approximately 4 cm into the hernia sac. There are no accompanying bowel loops within the h ernia sac. 2. Urinary bladder wall is diffusely thickened. The prostate gland is significantly enlarged and has appearance of probable prior TURP. 3. There is a 1.8 x 1.8 cm hyperdense lesion in the lateral cortex of the right kidney. Difficult to assess without IV contrast. Either solid nodule versus hemorrhagic cyst. Can be further studied wi th ultrasound. There are no other focal renal findings. No calculi. No hydronephrosis. RADIATION DOSE DELIVERED: 511.06mGy.cm Total DLP DATA REPOSITORY: All CT scans at this facility are submitted to the National Radiology Data Registry (NRDR) Dose Index Registry (DIR) with the [employer] (ACR). RADIATION OPTIMIZATION: All CT scans at this facility use at least one of these dose optimization te chniques: automated exposure control; mA and/or kV adjustment per patient size (includes targeted exa ms where dose is matched to clinical indication); or iterative reconstruction.
== END 2024-07-16 01:48 ==
LOC: DI 01:28
PROVIDERS: PCP Nurse Practitioner Family; Visit Provider Nurse Practitioner Family
DX: R31.0 Gross hematuria (principal); K40.90 Unilateral inguinal hernia, without obstruction or gangrene, not specified as recurrent
CPT/HCPCS: 74176

== ENCOUNTER 2024-07-25 02:45 | Outpatient (CLI) | payer MEDICARE, BC, SELFPAY ==
--- NOTE | 2024-07-25 09:00 | DI.US_ITS ---
Exam(s) US RENAL EXAM: US RENAL CLINICAL HISTORY: rt kidney cyst, n28.1. TECHNIQUE: Degroot scale, color and spectral Doppler were used. COMPARISON: CT CT ABDOMEN PELVIS WO from 07/16/2024 FINDINGS: Renal size in cm: Right: 11.8. Left: 12.7. Echogenicity: Normal. Hydronephrosis: No. Cyst or mass: No. Nephrolithiasis: No. Other findings: None. Bladder:Normal. Ureteral jets: Right: Not visualized on this examination. Left: Not visualized on this examination. Prevoid vol:130 cc Postvoid vol:The patient was unable to void during the examination. Prostate: 74 cc Renal color flow: Symmetric and within normal limits. IMPRESSION: 1. The area of concern on the right kidney is not visualized sonographically. Due to its presence on the CT examination, an MRI of the kidneys without and with contrast is recommended for further evalu ation. 2. Enlarged prostate gland. DATA REPOSITORY:
== END 2024-07-25 03:05 ==
LOC: DI 02:45
PROVIDERS: PCP Nurse Practitioner Family; Visit Provider Nurse Practitioner Family
DX: N28.1 Cyst of kidney, acquired (principal)
CPT/HCPCS: 76770

== ENCOUNTER → 2024-08-09 10:54 | Outpatient (BNVA) | payer MEDICARE, BC, SELFPAY | PROVIDERS: PCP Nurse Practitioner Family; Referring Provider Nurse Practitioner Family; Visit Provider Surgery | DX: K40.90 Unilateral inguinal hernia, without obstruction or gangrene, not specified as recurrent (principal); K46.9 Unspecified abdominal hernia without obstruction or gangrene | CPT/HCPCS: 99213 ==

== ENCOUNTER 2024-11-17 10:06 | Observation (INO) | payer MEDICARE, BC, SELFPAY ==
[2024-11-17] VITALS (15 sets, daily range): BP systolic 100–137; BP diastolic 39–76; PULSE 57–84; RESP 13–22; TEMP 35.9–36.6; O2SAT 96–98
--- NOTE | 2024-11-17 10:00 | RT.EKG_ITS ---
APPROVED REPORT Exam: Resting ECG Reason for Exam: possible stroke Patient Location: E HR:66 bpm ECG Measurements Heart Rate 66 AXIS AL 196 P 33 QRSd 105 QRS 36 QT 414 T 39 QTc 434 Conclusion Sinus rhythm, rate 66 No interval abnormalities No STEMI No priors available for comparison
--- NOTE | 2024-11-17 10:15 | DI.RAD_ITS ---
Exam(s) XR CHEST 2V PA LATERAL EXAM: XR CHEST 2V PA LATERAL CLINICAL HISTORY: Cough, sore throat, hx PNA TECHNIQUE: 2D digital imaging was performed. Two views. COMPARISON: CR XR SHOULDER RT COMPLETE 2+V from 02/24/2022 FINDINGS: HEART: Normal size. Aorta: Mildly tortuous. PULMONARY VASCULATURE: Normal. MEDIASTINUM: Unremarkable. LUNGS: Clear. PLEURAL SPACE: No pleural effusion or pneumothorax. BONE:Degenerative changes in the spine. Old right clavicle deformity. SOFT TISSUES: Unremarkable. IMPRESSION: No acute abnormality. DATA REPOSITORY: RADIATION DOSE DELIVERED:
--- NOTE | 2024-11-17 10:15 | DI.CT_ITS ---
Exam(s) CT BRAIN NECK CTA EXAM: CT BRAIN NECK CTA CLINICAL HISTORY: Brain fog/word finding, eval stroke. TECHNIQUE: Imaging Protocol: Axial CT angiography was performed with multi-slice acquisition and mu lti-planar and MIP reconstructions. CONTRAST MATERIAL: Intravenous: Omnipaque 350 Contrast volume:70 ml COMPARISON: CT CT BRAIN CTA from 12/30/[address] CAROTID NECK CTA from 01/01/2021 FINDINGS: CT Head W/O and W contrast: Ventricles and Extra axial spaces: Normal in size and morphology for the patient's age. Hemorrhage: None. Cerebral parenchyma: No evidence of acute infarct or mass. Mild white matter changes of small vessel disease, similar to prior. Mild age related atrophy. Midline shift: None. Brainstem/Cerebellum: No acute findings.. Calvarium: Normal. Visualized Paranasal sinuses/Mastoids: Clear. Soft Tissues: Unremarkable. Enhancement: Normal. CTA Brain W: Internal Carotid Arteries: Petrous: Normal. Cavernous: Normal. Cerebral: Normal. Middle Cerebral Arteries: Right: No aneurysm, occlusion or significant stenosis. Left: No aneurysm, occlusion or significant stenosis. Anterior Cerebral Arteries: Right: No aneurysm, occlusion or significant stenosis. Left: No aneurysm, occlusion or significant stenosis. Posterior cerebral Arteries: Right: No aneurysm, occlusion or significant stenosis. Left: No aneurysm, occlusion or significant stenosis. Vertebral Arteries: Right: No aneurysm, occlusion or significant stenosis. Left: No aneurysm, occlusion or significant stenosis. Basilar Artery: No aneurysm, occlusion or significant stenosis. CTA Neck W: Common Carotid: Right: Small focus of calcified plaque at the bulb. No dissection, occlusion or significant stenosis . Left: Small focus of calcified plaque at the bulb. No dissection, occlusion or significant stenosis. External Carotid: Right: No dissection, occlusion or significant stenosis. Left: No dissection, occlusion or significant stenosis. Internal Carotid: Right: no dissection, occlusion or significant stenosis. Left: No dissection, occlusion or significant stenosis. Vertebral Artery: Right: No dissection, occlusion or significant stenosis. Left: No dissection, occlusion or significant stenosis. Lung Apices: No acute findings. Bones: No acute abnormality. Degenerative changes in the cervical spine. Soft Tissues: Normal. IMPRESSION: 1. CTA brain: Normal CTA examination of the [place]. 2. Head CT: No evidence of acute infarct or hemorrhage. 3. CTA neck: Small foci of calcific plaque at both common carotid bulbs, otherwise normal CTA examina tion of the neck. RADIATION DOSE DELIVERED: Total DLP DATA REPOSITORY: All CT scans at this facility are submitted to the National Radiology Data Registry (NRDR) Dose Index Registry (DIR) with the [employer] (ACR). RADIATION OPTIMIZATION: All CT scans at this facility use at least one of these dose optimization te chniques: automated exposure control; mA and/or kV adjustment per patient size (includes targeted exa ms where dose is matched to clinical indication); or iterative reconstruction.
--- NOTE | 2024-11-17 10:20 | ED.GENADUL_ITS ---
Discharge Plan Disposition Patient Disposition: Admit to [facility] Condition: Stable Discharge Details Chief Complaint: AMS/LOC Clinical Impression: Episodic lightheadedness, Concern about stroke without diagnosis Primary Care Provider: Soheila Dooley ED Provider: Rema Shoemaker Home Meds and New Rx's Prescriptions: No Action aspirin 81 mg tablet,chewable 81 mg PO DAILY multivitamin Tablet 1 tab PO DAILY B-complex with vitamin C Tablet 1 tab PO DAILY cholecalciferol (vitamin D3) 50 mcg (2,000 unit) capsule 50 mcg PO DAILY omega 1-dvh-rkf-fish oil [Fish Oil] 60-90-500 mg capsule 2 cap PO DAILY sildenafil 50 mg tablet 50 mg PO DAILY PRN (Reason: sexual activity) Qty: 20 3RF Rx Instructions: administer 30 minutes to 4 hours before activity HPI General Mode of arrival: ambulatory . Date/Time Provider Initiated Documentation: 11/17/24 10:07 . Limitations to Documentation: no limitations . Information obtained by: patient and old records reviewed . HPI Narrative: HPI: This is AN 84-year-old male patient with a past medical history significant for stroke, no reported residual deficits, presenting for evaluation of brain fog and dizziness as well as cough. The patient reports that he woke up this morning in his normal state of health, had an episode of coughing around 9:30 in the morning and then felt like he was not in his body and felt slightly dizzy. He reports that he has had a sore throat for the last few days, had a history of pneumonia that required 5 weeks before it returned to his baseline respiratory status. He denies fevers or chills, chest pain, shortness of breath at this time. The patient reports that he feels like he has to think about the names before he sends them but does not have any slurring of his speech, changes in his vision, headache, denies focal weakness, numbness, or tingling. He was able to ambulate without difficulty, feels like he has had some ongoing very mild lightheadedness. States that he fell asleep on the way here several times, did not fall or sustain injury. Exam: Gen: awake and alert, in no apparent distress. Appears well nourished. HEENT: PERRL, EOMs full and without nystagmus. External ears and nose normal, mucous membranes moist. Posterior pharynx without erythema or exudate Neck: Supple, full range of motion, no observable masses Lungs: No increased work of breathing, lung sounds clear and equal bilaterally without wheezes, rhonchi, or rales. CV: Heart with regular rate and rhythm, no murmurs auscultated. Strong and symmetrical radial pulses. Abdomen: Soft, nondistended, non-tender to palpation. No rigidity, rebound tenderness, or guarding. MSK: No joint swelling, no redness. Full ROM without limitation, no external traumatic findings. Skin: No rashes or lesions to visualized skin. Normal color, warm, and dry. Neuro: Cranial nerves II-XII intact and symmetrical bilaterally. 5/5 strength in all muscle groups x4 extremities. No sensory deficits. Ambulates with steady gait. Speech is clear and without significant word finding difficulties, no extinction/inattention Psych: Appropriate for situation. MDM: This is a an 84-year-old male patient presenting for evaluation of brain fog and dizziness as well as cough and sore throat. My differential includes but is not limited to viral upper respiratory infection, viral pharyngitis, no evidence for strep pharyngitis on physical examination and the patient Centor score is quite low. Considered pneumonia and bronchitis, as well as intracranial abnormalities including intracranial hemorrhage, stroke, mass effect, recrudescence. Considered metabolic derangement, anemia, kidney injury, urinary tract infection. The patient's loss of consciousness is concerning for syncope, arrhythmia, seizure, excessive fatigue. The patient at this time has an NIH stroke scale of 0, but given the timing of onset of symptoms and his history I do think it is prudent to proceed with CTA of the brain and neck. I will also obtain an x-ray of his chest, and laboratory studies to include CBC, CMP, magnesium, troponin, INR, urinalysis, and Fluvid. ED Course: I reviewed the patient's EKG, which shows a normal sinus rhythm with a rate of 66, no evidence of ischemia, interval abnormality, or ectopy. Fingerstick blood glucose 146. I reviewed the patient's laboratory studies, which shows no leukocytosis, new anemia or thrombocytopenia. Chemistry panel without electrolyte derangements, evidence of kidney dysfunction or liver disease. Troponin negative and without delta change on 1 hour recheck. COVID and influenza testing negative. CTA of the brain and neck are without evidence of new infarct, large vessel occlusion or other abnormality to explain the patient's symptoms. Chest x-ray without focal consolidation. Observed on telemetry without evidence of arrhythmia. I did consult [facility] teleneurology, who evaluated the patient and feel that the patient, well a significantly poor historian, cannot have stroke ruled out clinically and directed admission for MRI, EEG to evaluate for seizure, and initiation of aspirin and Plavix here in the emergency department, which was ordered and provided. I reached out to the hospitalist who is graciously accepted this patient for admission to their service for ongoing workup and management. Patient remained hemodynamically appropriate while under my care and was transferred from this department without incident. Rema Shoemaker MD Related Data Home Medications ?Medication ?Instructions ?Recorded ?Confirmed aspirin 81 mg chewable tablet 81 mg PO DAILY 01/06/21 11/17/24 B-complex with vitamin C 1 tab PO DAILY 08/09/24 11/17/24 cholecalciferol (vitamin D3) 50 50 mcg PO DAILY 08/09/24 11/17/24 mcg (2,000 unit) capsule multivitamin 1 tab PO DAILY 08/09/24 11/17/24 omega 5-emk-iwg-fish oil 60 mg-90 2 cap PO DAILY 08/09/24 11/17/24 mg-500 mg capsule (Fish Oil) sildenafil 50 mg tablet 50 mg PO DAILY PRN sexual activity 09/11/24 11/17/24 #20 tabs Previous Rx's ?Medication ?Instructions ?Recorded sildenafil 50 mg tablet 50 mg PO DAILY PRN sexual activity 09/11/24 #20 tabs Allergies Allergy/AdvReac Type Severity Reaction Status Date / Time finasteride (From Proscar) AdvReac Unknown unknown Verified 11/17/24 10:19 tamsulosin HCl (From Flomax) AdvReac dizziness Verified 11/17/24 10:19 General Stated Complaint: AMS/LOC JAMES: 4 Course Vital Signs Vital signs: Vital Signs Pulse 68 11/17/24 10:09 Respiratory Rate 14 11/17/24 10:09 Blood Pressure 137/58 L 11/17/24 10:09 Pulse Oximetry 96 11/17/24 10:09 Temperature 35.9 C L 11/17/24 10:16 Pulse 70 11/17/24 10:16 Respiratory Rate 14 11/17/24 10:16 Blood Pressure 130/53 L 11/17/24 10:16 Blood Pressure Position Supine 11/17/24 10:16 Pulse Oximetry 98 11/17/24 10:16 Oxygen Delivery Method Room Air 11/17/24 10:16 Oxygen Flow Rate 0 11/17/24 10:09 Pain Level 0 11/17/24 10:16 Medical Decision Making Quality:SDOH Health Related Social Needs: No Data to Display Critical Care Time Critical Care Time Critical Care Time: Yes Total Critical Care Time: 35 Attestation: Upon my evaluation, this patient had a high probability of imminent or life- threatening deterioration due to stroke/TIA, altered mental status and lightheadedness, which required my direct attention, intervention, and personal management. I have personally provided 35 minutes of critical care time exclusive of time spent on separately billable procedures. Time includes review of laboratory data, radiology results, discussion with consultants, and monitoring for potential decompensation. Interventions were performed as documented above. Rema Shoemaker MD PFSH All Active Problems (Updated 11/17/24 @ 12:09 by Rema Shoemaker MD) Concern about stroke without diagnosis (Acute) Episodic lightheadedness (Acute) Right inguinal hernia (Acute) Abd/pelvis CT on 07/16/24: 1. The anterior right side of the urinary bladder extends a few cm into a right inguinal hernia. This extends approximately 4 cm into the hernia sac. There are no accompanying bowel loops within the hernia sac. 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 Brother No problems noted. Maternal Grandfather , age 79 Heart disease Paternal Grandfather , age74 Heart disease Maternal Grandmother No problems noted. Paternal Grandmother , age 89 No problems noted. Son No problems noted. Social History (Updated 06/22/23 @ 13:03 by Chichi Dugan) Smoking/Tobacco Use Status: Former Tobacco Use Tobacco: How many years used: 3 Second Hand Exposure: Yes Smoking risk assessment performed?: Yes Alcohol Intake: current Alcohol Intake frequency: a few times a month Alcohol type: wine Drug use: Never Substance use type: does not use Caregiver/Support person: No Household members: none Housing: house Number of Children: 2 Communication Needs: None Do you need help understanding health information?: Never current occupation: Retired described his first kid when he was 52 Pets and animals: No Sexually active: Yes Do you think of yourself as: straight/heterosexual Current gender identity: male What is your relationship status?: How often do you talk on the phone with friends or family?: three or more times per week How often do you get together with friends or relatives?: twice per week How often do you attend baptism or temple services?: decline to answer Do you belong to any clubs or organized social groups?: yes Panel score (0-1 are the most socially isolated patients): 2 What type of physical activity do you participate in: weight lifting, other Details: golf and running Duration: > 90 minutes/day Frequency: 5-6 times per week Rhina/Mormonism: Mormonism Special rhina needs: No Agree to transfusion: Yes Seatbelt use: always Helmet use: Yes Helmet use: always Drive intox or ride w/intox otr company driver: No Working smoke detector in home: Yes Firearms in home: Yes Do you feel safe at home: Yes Do you feel safe in your relationship?: Yes Victim of physical abuse: No Victim of emotional abuse: No Victim of sexual abuse: No
[2024-11-17 10:23] LABS: Abs Immature Grans 0.01 10^3/uL (0.0-0.06); Absolute Basophil Count 0.03 10^3/uL (0.0-0.2); Absolute Eosinophil Count 0.11 10^3/uL (0.0-0.7); Absolute Lymphocyte Count 1.54 10^3/uL (1.2-3.4); Absolute Monocyte Count 0.57 10^3/uL (0.1-0.8); Absolute Neutrophil Count 2.69 10^3/uL (1.2-6.7); Basophils % 0.6 %; Eosinophils % 2.2 %; HCT 38.9 % (40.0-50.0); HGB 13.3 g/dL (13.5-17.5); Immature Grans % 0.2 %; Lymphocytes % 31.1 %; MCH 31.3 pg (27.0-33.0); MCHC 34.2 % (32.0-36.0); MCV 92 fL (80-95); MPV 9.9 fL (8.0-11.0); Monocytes % 11.5 %; Neutrophils % 54.4 %; Platelet Count 144 10^3/uL (130-400); RBC 4.25 10^6/uL (4.36-5.78); RDW 12.8 % (11.8-14.1); RDW-SD 42.6 fL; WBC 4.95 10^3/uL (4.4-10.8)
[2024-11-17 10:35] LABS: INR 1.1 (0.9-1.1); Prothrombin Time 10.6 sec (9.1-11.1)
[2024-11-17] MEDS: Omnipaque 350 MG/ML 100 ML BTL 70 ML IJ (10:39)
[2024-11-17] MEDS: Normal Saline - Diluent 50 ML VIAL IJ (10:39)
[2024-11-17 10:42] LABS: ALT 26 U/L (16-63); AST 21 U/L (15-37); Albumin 3.8 g/dL (3.4-5.0); Alkaline Phosphatase 62 U/L (46-116); Anion Gap 8.9 mmol/L (3-11); BUN 10 mg/dL (7-18); Bilirubin, Total 0.7 mg/dL (0.2-1.0); CO2 30.1 mmol/L (21.0-32.0); CREATININE 0.9 mg/dL (0.70-1.30); Calcium 9.1 mg/dL (8.5-10.1); Chloride 103 mmol/L (98-107); Estimated GFR 85.27 (mL/min/1.73m2); Glucose 157 mg/dL (74-106); Magnesium 2.1 mg/dL (1.8-2.4); Potassium 4.2 mmol/L (3.5-5.1); Sodium 142 mmol/L (136-145); Total Protein 7.1 g/dL (6.4-8.2); Troponin I 6 ng/L (<or=76)
--- NOTE | 2024-11-17 10:49 | DI.VRAD_ITS ---
PROCEDURE INFORMATION: Exam: CTA Head Without And With Contrast, Arteriography Exam date and time: 11/17/2024 10:24 AM Age: 84 years old Clinical indication: Stroke-like symptoms; Other: Weakness, falls, on thinners TECHNIQUE: Imaging protocol: Computed tomographic angiography of the head without and with contrast. Exam focused on the arteries. 3D rendering (Not supervised by radiologist): MIP and/or 3D reconstructed images were created by the technologist. Contrast material: OMNIPAQUE 350; Contrast volume: 70 ml; Contrast route: INTRAVENOUS (IV); Other technique: STROKE PROTOCOL was implemented. COMPARISON: CT BRAIN CTA 12/30/2020 2:25 PM FINDINGS: ANTERIOR CIRCULATION: Right internal carotid artery: Intracranial segment is patent with no significant stenosis or occlusion. No aneurysm. Right middle cerebral artery: No occlusion or significant stenosis. No aneurysm. Right anterior cerebral artery: No occlusion or significant stenosis. No aneurysm. Left internal carotid artery: Intracranial segment is patent with no significant stenosis. No aneurysm. Left middle cerebral artery: No occlusion or significant stenosis. No aneurysm. Left anterior cerebral artery: No occlusion or significant stenosis. No aneurysm. POSTERIOR CIRCULATION: Right vertebral artery: No occlusion or significant stenosis. No aneurysm. Left vertebral artery: No occlusion or significant stenosis. No aneurysm. Basilar artery: No occlusion or significant stenosis. No aneurysm. Right posterior cerebral artery: No occlusion or significant stenosis. No aneurysm. Left posterior cerebral artery: No occlusion or significant stenosis. No aneurysm. HEAD: Brain: Generalized atrophy and chronic white matter ischemic changes. There is no mass, acute hemorrhage or acute infarct. Cerebral ventricles: Normal. No ventriculomegaly. Bones: Unremarkable. No acute fracture. Paranasal sinuses: Visualized sinuses are normal. No fluid levels. Mastoid air cells: Visualized mastoids are normal. No mastoid effusion. Soft tissues: Unremarkable. IMPRESSION: 1. No large vessel occlusion. 2. Unremarkable CT head. ASSESSMENT: ASPECTS ([place] Stroke Program Early CT Score) is 10. PROCEDURE INFORMATION: Exam: CTA Neck Without And With Contrast Exam date and time: 11/17/2024 10:24 AM Age: 84 years old Clinical indication: Stroke-like symptoms; Other: Weakness, falls, on thinners TECHNIQUE: Imaging protocol: Computed tomographic angiography of the neck without and with contrast. Exam focused on the cervical segments of the vasculature. 3D rendering (Not supervised by radiologist): MIP and/or 3D reconstructed images were created by the technologist. Contrast material: OMNIPAQUE 350; Contrast volume: 70 ml; Contrast route: INTRAVENOUS (IV); COMPARISON: CT CAROTID NECK CTA 01/01/2021 8:39 AM FINDINGS: Right common carotid artery: No stenosis. No dissection or occlusion. Right internal carotid artery: No stenosis of the extracranial segment. No dissection or occlusion. Right external carotid artery: No occlusion or stenosis of the origin. Left common carotid artery: No stenosis. No dissection or occlusion. Left internal carotid artery: No stenosis of the extracranial segment. No dissection or occlusion. Left external carotid artery: No occlusion or stenosis of the origin. Right vertebral artery: No stenosis. No dissection or occlusion. Left vertebral artery: No stenosis. No dissection or occlusion. Soft tissues: Normal. No significant soft tissue swelling. Bones/joints: There is moderate multilevel central spinal stenosis, secondary to disc buldge/osteophytic spurring. IMPRESSION: No stenosis or occlusion. REFERENCES: NASCET CRITERIA. The degree of stenosis in the cervical segment of the internal carotid artery is based on NASCET criteria. Normal is no stenosis. Mild is less than 50% stenosis. Moderate is 50-69% stenosis. Severe is 70% to 99% stenosis. Total occlusion is no detectable patent lumen. Dictated and Authenticated by: Jen Pickering MD. Orderin [facility] Hodgson MD
--- NOTE | 2024-11-17 11:00 | DI.VRAD_ITS ---
PROCEDURE INFORMATION: Exam: XR Chest Exam date and time: 11/17/2024 10:41 AM Age: 84 years old Clinical indication: Other: Unwell TECHNIQUE: Imaging protocol: Radiologic exam of the chest. Views: 2 views. COMPARISON: CT BRAIN NECK CTA 11/17/2024 10:24 AM FINDINGS: Lungs: Unremarkable. No consolidation. Pleural spaces: Unremarkable. No pleural effusion. No pneumothorax. Heart/Mediastinum: Unremarkable. No cardiomegaly. Bones/joints: Unremarkable. IMPRESSION: No acute findings. Dictated and Authenticated by: Jen Pickering MD. Orderin [facility] Hodgson MD
[2024-11-17 11:32] LABS: Troponin I 6 ng/L (<or=76)
[2024-11-17] MEDS: Aspirin 325 MG TAB PO (11:47)
[2024-11-17] MEDS: Clopidogrel 300 MG TAB PO (11:47)
[2024-11-17 11:50] LABS: COVID-19 PCR Negative (Negative); Influenza A PCR Negative (Negative); Influenza B PCR Negative (Negative); RSV PCR Negative (Negative)
[2024-11-17 11:52] LABS: Source Nasopharynx
--- NOTE | 2024-11-17 11:57 | HPE_ITS ---
Date of service: 11/17/24 Time of Service: 11:57 Assessment and Plan Assessment and plan (1) Stroke: Status: Chronic Assessment and plan: [facility] [place] neuro recommendation for workup for stroke VS seizure CT imaging was negative MRI w and w/o Telemetry Echocardiogram lipids, A1C Normal TSH EEG recommended and ordered - Neuro check Q4 ASA Clopidogrel High intensity statin: has refused in the past and still refusing today UA not conclusive d/t RBC content - Urine Cx ordered (2) Seizure: Status: Acute Assessment and plan: Somnolent on his way to the ED, no seizure witnessed- no recommendation for anti-seizure drug As above (3) On deep vein thrombosis (DVT) prophylaxis: Status: Acute Assessment and plan: On LMWH Discussed with Dr. Swann History of Present Illness History of Present Illness Chief Complaint: Speech impairment, lightheadedness dizziness, somnolence Narrative: This 84-year-old male patient with PMHx stroke w/o residual deficit presenting for evaluation of word finding, brain fog, sleepiness, lightheadedness and cough starting around 09:30 this AM. Workup in the ED showed negative acute findings on head CT, head and neck CTA, chest XR and blood work. Tele neuro-consultation resulted in recommendations for ASA, plavix load and statin therapy as well as an MRI of the brain with and w/o contrast. The patient will be admitted to the medical surgical floor with telemetry for ongoing monitoring and stroke work-up. Full code status confirmed. The patient reported falling asleep during conversation on his way to the hospital, and waking up on another subject. Denied headache, chills, fever, new tingling and numbness, ambulatory difficulty, change in vision, chest pain or other discomfort, nausea, vomiting or dysuria. Reported that he felt like he was not in his body and felt slightly dizzy. Review of Systems All systems reviewed & are unremarkable except as noted in HPI and below PFSH All Active Problems (Updated 11/17/24 @ 14:29 by Chyna Robbins APRN) On deep vein thrombosis (DVT) prophylaxis (Acute) Seizure (Acute) Concern about stroke without diagnosis (Acute) Episodic lightheadedness (Acute) Right inguinal hernia (Acute) Abd/pelvis CT on 07/16/24: 1. The anterior right side of the urinary bladder extends a few cm into a right inguinal hernia. This extends approximately 4 cm into the hernia sac. There are no accompanying bowel loops within the hernia sac. Gross hematuria (Acute) Numbness of right hand (Acute) Erectile dysfunction (Chronic) Stroke (Chronic) declines Lipitor Medical History (Updated 11/17/24 @ 14:29 by Chyna Robbins APRN) COVID Arthritis of right acromioclavicular joint Calcific tendonitis of right shoulder Tendinitis of long head of biceps brachii of right shoulder Lesion of eyelid Primary osteoarthritis of left knee (02/21/17) Family history of diabetes mellitus (06/15/13) Idiopathic scoliosis Raised prostate specific antigen (06/06/12) Surgical History S/P TURP S/P cataract surgery November 2019 bilaeral Tonsillectomy and adenoidectomy Arthroplasty of knee LEFT Appendectomy Family History FAMILY HISTORY Diabetes Hyperlipidemia Mother , age 61 Diabetes Father , age 87 Depression Sister , age 70 No problems noted. Brother No problems noted. Maternal Grandfather , age 79 Heart disease Paternal Grandfather , age74 Heart disease Maternal Grandmother No problems noted. Paternal Grandmother , age 89 No problems noted. Son No problems noted. Social History (Updated 06/22/23 @ 13:03 by Chichi Dugan) Smoking/Tobacco Use Status: Former Tobacco Use Tobacco: How many years used: 3 Second Hand Exposure: Yes Smoking risk assessment performed?: Yes Alcohol Intake: current Alcohol Intake frequency: a few times a month Alcohol type: wine Drug use: Never Substance use type: does not use Caregiver/Support person: No Household members: none Housing: house Number of Children: 2 Communication Needs: None Do you need help understanding health information?: Never current occupation: Retired described his first kid when he was 52 Pets and animals: No Sexually active: Yes Do you think of yourself as: straight/heterosexual Current gender identity: male What is your relationship status?: How often do you talk on the phone with friends or family?: three or more times per week How often do you get together with friends or relatives?: twice per week How often do you attend yazidism or uatsdin services?: decline to answer Do you belong to any clubs or organized social groups?: yes Panel score (0-1 are the most socially isolated patients): 2 What type of physical activity do you participate in: weight lifting, other Details: golf and running Duration: > 90 minutes/day Frequency: 5-6 times per week Rhina/Orthodoxy: Caodaism Special rhina needs: No Agree to transfusion: Yes Seatbelt use: always Helmet use: Yes Helmet use: always Drive intox or ride w/intox route sales delivery driver: No Working smoke detector in home: Yes Firearms in home: Yes Do you feel safe at home: Yes Do you feel safe in your relationship?: Yes Victim of physical abuse: No Victim of emotional abuse: No Victim of sexual abuse: No Meds Allergies and Home Medications Allergies Allergy/AdvReac Type Severity Reaction Status Date / Time finasteride (From Proscar) AdvReac Unknown unknown Verified 11/17/24 10:19 tamsulosin HCl (From Flomax) AdvReac dizziness Verified 11/17/24 10:19 Home Medications ?Medication ?Instructions ?Recorded ?Confirmed ?Type aspirin 81 mg chewable tablet 81 mg PO DAILY 01/06/21 11/17/24 History B-complex with vitamin C 1 tab PO DAILY 08/09/24 11/17/24 History cholecalciferol (vitamin D3) 50 50 mcg PO DAILY 08/09/24 11/17/24 History mcg (2,000 unit) capsule multivitamin 1 tab PO DAILY 08/09/24 11/17/24 History omega 8-att-[id number]-fish oil 60 mg-90 2 cap PO DAILY 08/09/24 11/17/24 History mg-500 mg capsule (Fish Oil) sildenafil 50 mg tablet 50 mg PO DAILY PRN sexual activity 09/11/24 11/17/24 Rx #20 tabs Exam Narrative Exam Narrative: Constitutional The patient is sitting in without acute distress HENMT: Head is atraumatic, normocephalic, no lymphadenopathy. Facial structures symmetrical, no droop Neuro:Intact cranial nerve II-XII, A&O X4, No neurological focal deficit Resp:Unlabored breathing, clear lung bilaterally Cardio: EKG SR HR 66 regular rhythm, S1, S2, no murmur, bilateral radial and dorsalis pedis pulses are positive GI: Abdomen is not distended, soft and non tender, bowel sounds are present : Negative Costovertebral angle tenderness Extremities: strength 5/5 to bilateral lower and upper extremities Psych: RASS 0, congruent mood and normal affect. Results Labs 11/17/24 10:17 11/17/24 10:17 Labs: Laboratory Results - last 24 hr 11/17/24 11/17/24 11/17/24 10:17 11:09 13:16 WBC 4.95 RBC 4.25 L Hgb 13.3 L Hct 38.9 L MCV 92 MCH 31.3 MCHC 34.2 RDW 12.8 Plt Count 144 MPV 9.9 Immature Gran % 0.2 Neutrophils % 54.4 Lymphocytes % 31.1 Monocytes % 11.5 Eosinophils % 2.2 Basophils % 0.6 Nucleated RBC % 0.0 Absolute Neutrophils 2.69 Absolute Lymphocytes 1.54 Absolute Monocytes 0.57 Absolute Eosinophils 0.11 Absolute Basophils 0.03 PT 10.6 INR 1.1 Sodium 142 Potassium 4.2 Chloride 103 Carbon Dioxide 30.1 Anion Gap 8.9 BUN 10 Creatinine 0.9 Est GFR (CKD-EPI 2020) 85.27 Glucose 157 H Calcium 9.1 Magnesium 2.1 Total Bilirubin 0.7 AST 21 ALT 26 Alkaline Phosphatase 62 Troponin I 6 6 Cancelled Total Protein 7.1 Albumin 3.8 COVID-19 Source Nasopharynx SARS-CoV-2 (PCR) Negative Influenza Type A (PCR) Negative Influenza Type B (PCR) Negative RSV (PCR) Negative Last Vital Signs Temp 35.9 C L 11/17/24 10:16 Pulse 64 11/17/24 11:47 Resp 18 11/17/24 11:47 BP 118/54 L 11/17/24 11:47 Pulse Ox 97 11/17/24 11:25 Time Spent Time spent with Patient: >75 minutes Time was spent: preparing to see the patient(eg.review tests), obtaining and/or reviewing separately otained hiistory, ordering medications,tests, procedures, referring, communicating with other health skin care consultant, indepentently interpreting results, counseling the patient and care coordination
[2024-11-17 12:10] LABS: Lab Add On Test DONE
[2024-11-17 12:18] LABS: Ammonia < 10 umol/L (11-32)
[2024-11-17 12:28] LABS: Calculated LDL 165 mg/dL (<100); Cholesterol 239 mg/dL (<200); HDL Cholesterol 64 mg/dL (>or=40); Triglyceride 51 mg/dL (<150)
[2024-11-17 12:35] LABS: Hemoglobin A1C 5.6 % (<5.7)
[2024-11-17 12:53] LABS: TSH 1.26 uIU/mL (0.36-3.74); Vitamin B12 1329 pg/mL (193-986)
[2024-11-17 12:58] LABS: ETHANOL BLOOD < 3.0 mg/dL (<10)
--- NOTE | 2024-11-17 13:44 | W.PC.ACHO ---
Registration Status: Primary Language: Preferred Language: ED Information & Data Chief Complaint AMS/LOC 11/17/24 10:20 Triage Note patient felt dizzy and 11/17/24 10:09 confused this morning about 0900, fell asleep multiple times on the way to the hospital. Patient states that he still feels out of it. previous stroke hx 3 years ago. BGL 146 Medical / Surgical History (Last Updated 06/20/23 @ 15:56 by Soheila Dooley NP) COVID Arthritis of right acromioclavicular joint Calcific tendonitis of right shoulder Tendinitis of long head of biceps brachii of right shoulder Lesion of eyelid Primary osteoarthritis of left knee (02/21/17) Family history of diabetes mellitus (06/15/13) Idiopathic scoliosis Raised prostate specific antigen (06/06/12) (Last Reviewed 04/13/23 @ 13:18 by Vane Gonzales NP) S/P TURP S/P cataract surgery Tonsillectomy and adenoidectomy Arthroplasty of knee Appendectomy Most Recent Vital Signs Temperature 35.9 C L 11/17/24 10:16 Pulse 65 11/17/24 13:29 Pulse 62 11/17/24 13:29 Respiratory Rate 14 11/17/24 13:29 Respiratory Effort Normal 11/17/24 10:23 Respiratory Depth Normal 11/17/24 10:23 Respiratory Pattern Normal 11/17/24 10:23 Blood Pressure 120/64 11/17/24 13:29 Blood Pressure Mean 81 11/17/24 13:29 Blood Pressure Position Supine 11/17/24 10:16 Pulse Oximetry 98 11/17/24 13:29 Oxygen Delivery Method Room Air 11/17/24 10:16 Oxygen Flow Rate 0 11/17/24 10:09 Pain Level 0 11/17/24 10:16 Allergies finasteride (From Proscar) Adverse Reaction (Unknown, Verified 11/17/24 10:19) unknown tamsulosin HCl (From Flomax) Adverse Reaction (Verified 11/17/24 10:19) dizziness Precautions Isolation Standard precaution 11/17/24 10:16 Active Medications Generic Name Dose Route Start Last Admin Trade Name Freq PRN Reason Stop Dose Admin Iohexol 70 ml 11/17/24 10:45 11/17/24 10:39 Omnipaque 350 Mg/Ml 100 Ml Btl IJ 12/17/24 23:59 70 ml DIRECTED OCTAVIANO Administration Sodium Chloride 50 ml 11/17/24 10:45 11/17/24 10:39 Normal Saline - Diluent 50 Ml Vial IJ 50 ml .FOR DI USE OCTAVIANO Administration IV IV Catheter Type [Right Peripheral IV Antecubital] IV Catheter Gauge [Right 18 Antecubital] Diagnostics 11/17/24 11/17/24 11/17/24 Range/Units 13:16 11:50 11:41 WBC (4.4-10.8) 10^3/uL RBC (4.36-5.78) 10^6/uL Hgb (13.5-17.5) g/dL Hct (40.0-50.0) % MCV (80-95) fL MCH (27.0-33.0) pg MCHC (32.0-36.0) % RDW (11.8-14.1) % Plt Count (130-400) 10^3/uL MPV (8.0-11.0) fL Immature Gran % % Neutrophils % % Lymphocytes % % Monocytes % % Eosinophils % % Basophils % % Nucleated RBC % (0.0-0.3) % Absolute Neutrophils (1.2-6.7) 10^3/uL Absolute Lymphocytes (1.2-3.4) 10^3/uL Absolute Monocytes (0.1-0.8) 10^3/uL Absolute Eosinophils (0.0-0.7) 10^3/uL Absolute Basophils (0.0-0.2) 10^3/uL PT (9.1-11.1) sec INR (0.9-1.1) Sodium (136-145) mmol/L Potassium (3.5-5.1) mmol/L Chloride (98-107) mmol/L Carbon Dioxide (21.0-32.0) mmol/L Anion Gap (3-11) mmol/L BUN (7-18) mg/dL Creatinine (0.70-1.30) mg/dL Est GFR (CKD-EPI 2020) (mL/min/1.73m2) Glucose (74-106) mg/dL Hemoglobin A1c (<5.7) % Calcium (8.5-10.1) mg/dL Magnesium (1.8-2.4) mg/dL Total Bilirubin (0.2-1.0) mg/dL AST (15-37) U/L ALT (16-63) U/L Alkaline Phosphatase (46-116) U/L Ammonia < 10 L (11-32) umol/L Troponin I Cancelled (<or=76) ng/L Total Protein (6.4-8.2) g/dL Albumin (3.4-5.0) g/dL Triglycerides (<150) mg/dL Total Cholesterol (<200) mg/dL LDL Cholesterol, Calc (<100) mg/dL HDL Cholesterol (>or=40) mg/dL Vitamin B12 (193-986) pg/mL TSH (0.36-3.74) uIU/mL Ethyl Alcohol (<10) mg/dL COVID-19 Source SARS-CoV-2 (PCR) (Negative) Influenza Type A (PCR) (Negative) Influenza Type B (PCR) (Negative) RSV (PCR) (Negative) Add-On Test Request DONE 11/17/24 11/17/24 Range/Units 11:09 10:17 WBC 4.95 (4.4-10.8) 10^3/uL RBC 4.25 L (4.36-5.78) 10^6/uL Hgb 13.3 L (13.5-17.5) g/dL Hct 38.9 L (40.0-50.0) % MCV 92 (80-95) fL MCH 31.3 (27.0-33.0) pg MCHC 34.2 (32.0-36.0) % RDW 12.8 (11.8-14.1) % Plt Count 144 (130-400) 10^3/uL MPV 9.9 (8.0-11.0) fL Immature Gran % 0.2 % Neutrophils % 54.4 % Lymphocytes % 31.1 % Monocytes % 11.5 % Eosinophils % 2.2 % Basophils % 0.6 % Nucleated RBC % 0.0 (0.0-0.3) % Absolute Neutrophils 2.69 (1.2-6.7) 10^3/uL Absolute Lymphocytes 1.54 (1.2-3.4) 10^3/uL Absolute Monocytes 0.57 (0.1-0.8) 10^3/uL Absolute Eosinophils 0.11 (0.0-0.7) 10^3/uL Absolute Basophils 0.03 (0.0-0.2) 10^3/uL PT 10.6 (9.1-11.1) sec INR 1.1 (0.9-1.1) Sodium 142 (136-145) mmol/L Potassium 4.2 (3.5-5.1) mmol/L Chloride 103 (98-107) mmol/L Carbon Dioxide 30.1 (21.0-32.0) mmol/L Anion Gap 8.9 (3-11) mmol/L BUN 10 (7-18) mg/dL Creatinine 0.9 (0.70-1.30) mg/dL Est GFR (CKD-EPI 2020) 85.27 (mL/min/1.73m2) Glucose 157 H (74-106) mg/dL Hemoglobin A1c 5.6 (<5.7) % Calcium 9.1 (8.5-10.1) mg/dL Magnesium 2.1 (1.8-2.4) mg/dL Total Bilirubin 0.7 (0.2-1.0) mg/dL AST 21 (15-37) U/L ALT 26 (16-63) U/L Alkaline Phosphatase 62 (46-116) U/L Ammonia (11-32) umol/L Troponin I 6 6 (<or=76) ng/L Total Protein 7.1 (6.4-8.2) g/dL Albumin 3.8 (3.4-5.0) g/dL Triglycerides 51 (<150) mg/dL Total Cholesterol 239 H (<200) mg/dL LDL Cholesterol, Calc 165 H (<100) mg/dL HDL Cholesterol 64 H (>or=40) mg/dL Vitamin B12 1329 H (193-986) pg/mL TSH 1.26 (0.36-3.74) uIU/mL Ethyl Alcohol < 3.0 (<10) mg/dL COVID-19 Source Nasopharynx SARS-CoV-2 (PCR) Negative (Negative) Influenza Type A (PCR) Negative (Negative) Influenza Type B (PCR) Negative (Negative) RSV (PCR) Negative (Negative) Add-On Test Request [id number] Documentation Fingerstick Glucose Start: 11/17/24 10:19 Freq: Status: Active Protocol: Activity Type Activity Date Activity User E-sign Co-sign Detail Recorded Client Recorded Date Recorded By Document 11/17/24 10:12 BYRON CONCEPCION(3) [id number] 11/17/24 10:19 BYRON CONCEPCION(4) Intake and Output - 24 Hour Total 11/17/24 10:06 thru 11/17/24 10:09 Weight 87.9 kg Falls Risk Assessment History of Falls No History 11/17/24 10:23 Contributing Factors No Factors 11/17/24 10:23 Ambulatory Aids Independent 11/17/24 10:23 Tubes/Lines None 11/17/24 10:23 Gait Evaluation No gait disturbance 11/17/24 10:23 Cognition No cognitive impairment 11/17/24 10:23 Fall Total Score 0 11/17/24 10:23 Level of Risk Standard/Low Risk 11/17/24 10:23 v v v v v v v v v Sending and/or Receiving Nurses: Please use comment section below to note any information pertinent to the patient hand-off not included above. Information / Comments: Report received from: Antonia RAINEY at [phone]
[2024-11-17 14:54] LABS: Bacteria Negative HPF (Negative); Bilirubin Negative (Negative); Blood Negative (Negative); C & S Indicated? No; Clarity Clear (Clear); Crystals Negative HPF (Negative); Epithelial Cells Negative HPF (Negative); Glucose Negative (Negative); Ketones Negative (Negative); Leukocyte Esterase Negative (Negative); Mucus Negative (Negative); Nitrite Negative (Negative); RBC Negative HPF (0-2); Specific Gravity 1.015 (1.005-1.025); WBC Negative HPF (0-5); pH 8.5 (5-8)
[2024-11-17] MEDS: Normal Saline Flush 10 ML SYR IVP ×2 (15:05→20:55)
--- NOTE | 2024-11-17 15:22 | PT.INIE ---
PT Notes Visit Reasons: Stroke Physical Therapy Inpatient Initial Evaluation Date: 11/17/2024 Referring Doctor: Chyna Robbins NP PT Orders: PT CONSULT: Safety Consult for D/C Precautions: Fall. Standard. Activity as tolerated. Patient Profile/Admitting Diagnosis: Lakhwinder is an 84-year-old male admitted today for workup of CVA versus seizure. He came in at the ED somnolent with chief presentation of word finding difficulty, brain fog, lightheadedness, and cough. CTA of the neck showed small foci/calcific plaque at bilateral common carotid bulbs, brain and head vasculature with no acute abnormality. Patient is scheduled to have MRI on Tuesday to rule out CVA. PMHX: All Active Problems (Reviewed by 11/17/24 @ 15:22 by Nitza Javed DPT) On deep vein thrombosis (DVT) prophylaxis (Acute) Seizure (Acute) Concern about stroke without diagnosis (Acute) Episodic lightheadedness (Acute) Right inguinal hernia (Acute) Abd/pelvis CT on 07/16/24: 1. The anterior right side of the urinary bladder extends a few cm into a right inguinal hernia. This extends approximately 4 cm into the hernia sac. There are no accompanying bowel loops within the hernia sac. Gross hematuria (Acute) Numbness of right hand (Acute) Erectile dysfunction (Chronic) Stroke (Chronic) declines Lipitor Medical History (Reviewed by 11/17/24 @ 15:22 by Nitza Javed DPT) COVID Arthritis of right acromioclavicular joint Calcific tendonitis of right shoulder Tendinitis of long head of biceps brachii of right shoulder Lesion of eyelid Primary osteoarthritis of left knee (02/21/17) Family history of diabetes mellitus (06/15/13) Idiopathic scoliosis Raised prostate specific antigen (06/06/12) Surgical History (Reviewed by 11/17/24 @ 15:22 by Nitza Javed DPT) S/P TURP S/P cataract surgery November 2019 bilaeral Tonsillectomy and adenoidectomy Arthroplasty of knee LEFT Appendectomy Social History/Home 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 Lives alone in a private home with 3steps to enter with rails. he has a flight of steps to the bedroom, rails on B sides. Equipment Owned/DME: None Subjective: No report of headache, chest pain, and lightheadedness throughout session. Did not feel any difference in strength and in his walking Objective: Seated on bedside chair enjoying a show of golf. General Observation: A and o x 4. Did have one short brief lapse of throught while talking about his exercise regimen for the past 12 years but wa sable to recall with minimal cueing from PT. Mental Status: Alert and oriented as to person, place, time, and purpose. Able to pay attention, focus, and respond appropriately. Pain:None reported] Vital Signs: Closely monitored via tele ROM: Right Upper Extremity: Shoulder Flexion WFL. Shoulder abduction WFL. Elbow flexion WFL. Wrist flexion WFL. Functional opening and closing of hand WFL. Left Upper Extremity: Shoulder Flexion WFL. Shoulder abduction WFL. Elbow flexion WFL. Wrist flexion WFL. Functional opening and closing of hand WFL. Right Lower Extremity: Hip flexion WFL. Hip abduction WFL. Knee flexion WFL. Ankle dorsiflexion WFL. Ankle plantarflexion WFL. Left Lower Extremity: Hip flexion WFL. Hip abduction WFL. Knee flexion WFL. Ankle dorsiflexion WFL. Ankle plantarflexion WFL. Strength: Right Upper Extremity: Shoulder flexors 5/5. Shoulder abductors 5/5. Elbow flexors 5/5. Elbow extensors 5/5. Watch Assembly Instructor strong. Left Upper Extremity: Shoulder flexors 5/5. Shoulder abductors 5/5. Elbow flexors 5/5. Elbow extensors 5/5. Watch Assembly Instructor strong. Right Lower Extremity: Hip flexors 5/5. Hip abductors 5/5. Knee flexors 5/5. Knee extensors 5/5. Ankle dorsiflexors 5/5. Ankle plantarflexors 5/5. Left Lower Extremity: Hip flexors 5/5. Hip abductors 5/5. Knee flexors 5/5. Knee extensors 5/5. Ankle dorsiflexors 5/5. Ankle plantarflexors 5/5. Bed Mobility/Transfers: Rolling independent Supine to sit independent Sit to supine independent Sit to stand independent Stand to sit independent Bed to reclining chair independent Reclining chair to bed independent Gait: Provided supervision and minimal verbal cueing for directions only with patient navigating 300 feet on level surface ambulation without an assistive device no LOB. No SOB. Denied headache, chest pain, and lightheadedness throughout session. Reciprocal swing through gait pattern No path deviation. Stairs: Negotiated 6 x 4-inch steps and 2 x 6 with-inch steps while holding onto B rails for support, supervision only. Balance: Static Sitting: Normal Dynamic Sitting: Normal Static Standing: Normal Dynamic Standing: Good Special Tests: Mobility Limitations Standardized [facility] AM-PAC 6 clicks Basic Mobility Inpatient Short Form: Raw Score: 24 CMS Score: 0% deficit Romberg Test: Mild sway to L but no LOB Pronator Drift: Negative fo B sides Rapid Alternating movement: Intact for B UE and LE [id number] Test: 18x 4-Stage Balance Test: Feet together 10 seconds Semi-tandem 10 seconds Full tandem <10 seconds One-legged stance <10 seonds Informed Consent/Education: Patient was instructed in purpose of PT consult and plan of care. Agreeable to proceed with established PT POC to achieve personal goals. Assessment: Strength symmetric. No slurring of speech. Did lose train of thught while talking about having had an exercise regimen with a new product trainer for the past 12 years now, needed some cueing for PT. Otherwise, conversation was appropriate and typical. Patient navigated level surface ambulation in [facility] for 350 feet using no assistive device with supervision only with no report of headache, chest pain, and lightheadedness throughout. Patient will be followed by this provider until hospital discharge to ensure progression to independent hallway ambulation and if possible outdoor ambulation using no assistive device. Patient is assessed as a 17113 low complexity based on the following: History: 84-year-old male with past medical history as indicated above Examination: Demonstrable impairment in strength, balance, and mobility level with underlying impairments and functional limitations as exhibited above as well Presentation: Stable Decision Makin low complexity Goals: Goals X1 week 1. Independent gait on level surface with use of no AD for at least 1000 feet without report of pain nor dyspnea 2. Independent stair negotiation while holding onto B rails for at least 12 steps without report of pain nor dyspnea 3. Normal static and dynamic balance Plan of Care/Treatment Plan: Patient will be seen for 1-2 more sessions to follow patient for CVA workup and assess appropriateness of independent in hallway for ambulation. DISCHARGE RECOMMENDATIONS: X Home with no services. No skilled PT services recommended at this time. No equipment needs at this time. Home with services [specify] [] Home with outpatient PT [] [] SNF for continued rehabilitation [] [] Commercial Escrow Officer Care [] [] SNF versus LTC based on ability to participate and progress [] TREATMENT CODE/TIME: 64298 x 20 minutes, 15379 x 19 minutes for 1 unit (15: 22?16: 01). Thank you for the opportunity to participate in the care of this patient. Nitza Javed PT, DPT, CLT [facility] [place], [place]
[2024-11-18 01:11] VITALS: BP 109/60; PULSE 58; RESP 15; TEMP 36.8; O2SAT 96
[2024-11-18 06:31] LABS: Abs Immature Grans 0.01 10^3/uL (0.0-0.06); Absolute Basophil Count 0.02 10^3/uL (0.0-0.2); Absolute Eosinophil Count 0.11 10^3/uL (0.0-0.7); Absolute Lymphocyte Count 0.85 10^3/uL (1.2-3.4); Absolute Monocyte Count 0.44 10^3/uL (0.1-0.8); Absolute Neutrophil Count 2.17 10^3/uL (1.2-6.7); Basophils % 0.6 %; Eosinophils % 3.1 %; HCT 35.9 % (40.0-50.0); HGB 12.2 g/dL (13.5-17.5); Immature Grans % 0.3 %; Lymphocytes % 23.6 %; MCH 31.1 pg (27.0-33.0); MCV 92 fL (80-95); MPV 9.9 fL (8.0-11.0); Monocytes % 12.2 %; Neutrophils % 60.2 %; Platelet Count 144 10^3/uL (130-400); RBC 3.92 10^6/uL (4.36-5.78); RDW 12.9 % (11.8-14.1); RDW-SD 42.5 fL
[2024-11-18 06:44] LABS: Anion Gap 6.2 mmol/L (3-11); BUN 9 mg/dL (7-18); CO2 30.8 mmol/L (21.0-32.0); CREATININE 0.7 mg/dL (0.70-1.30); Calcium 8.9 mg/dL (8.5-10.1); Chloride 106 mmol/L (98-107); Glucose 111 mg/dL (74-106); Potassium 3.9 mmol/L (3.5-5.1); Sodium 143 mmol/L (136-145)
[2024-11-18 07:05] VITALS: BP 109/59; PULSE 62; RESP 18; TEMP 37.2; O2SAT 94
[2024-11-18] MEDS: Aspirin 81 MG CHEW PO (08:06)
[2024-11-18] MEDS: Enoxaparin 40 MG/0.4 ML SYR SC (08:06)
[2024-11-18] MEDS: Omega-3 Fatty Acids 1000 MG CAP PO (08:06)
[2024-11-18] MEDS: Vitamins B Comp w/C TAB 1 TAB PO (08:06)
[2024-11-18] MEDS: Clopidogrel 75 MG TAB PO (08:06)
[2024-11-18] MEDS: Cholecalciferol (Vitamin D3) 1,000 UNIT TAB 2000 UNITS PO (08:07)
[2024-11-18] MEDS: Multivitamin TAB 1 TAB PO (08:07)
[2024-11-18] MEDS: Normal Saline Flush 10 ML SYR IVP ×3 (08:37→19:59)
--- NOTE | 2024-11-18 09:42 | PGE_ITS ---
Date of Service Date of service: 11/18/24 Time of Service: 09:42 Assessment and Plan Assessment and plan (1) Stroke: Status: Chronic [place] [facility] [place] for workup for stroke VS seizure CT imaging was negative MRI w and w/o scheduled for Tuesday Telemetry with sinus rhythm, no dysrhythmias overnight Echocardiogram scheduled for Tuesday lipids-cholesterol 239 LDL 165 HDL 64 triglycerides 51, A1C 5.6 Normal TSH at 1.26 EEG recommended and ordered - Neuro check Q4 have been unremarkable Continue ASA and Clopidogrel High intensity statin: has refused UA not conclusive d/t RBC content - Urine Cx pending (2) Seizure: Status: Acute Assessment and plan: Somnolent on his way to the ED, no seizure witnessed- no recommendation for anti-seizure drug As above (3) On deep vein thrombosis (DVT) prophylaxis: Status: Acute Assessment and plan: On LMWH (4) Discharge planning issues: Status: Acute Assessment and plan: Anticipated discharge to home tomorrow after his workup has been completed No services anticipated Discussed with Dr. Montano Subjective Subjective Patient reports: no new complaints, feels better, tolerating liquids well, tolerating a regular diet and afebrile; denies shortness of breath Interval history since last seen: No reoccurrence of his symptoms. Feels at baseline. Exam Narrative Exam Narrative: Well-appearing male younger than stated age no acute distress head is atraumatic eyes nonicteric noninjected EOMs intact. No nystagmus. Facial features symmetrical. Neurologic he is awake alert oriented no focal deficits cranial nerves II through XII grossly intact. Oral mucosas moist neck full range of motion. Respirations even and unlabored expiratory wheeze left base cardiovascular regular rate and rhythm no murmurs appreciated. Moves all extremities equal strength 5 out of 5 able to perform [id number] with no ataxia bilaterally no peripheral edema skin is pink warm dry well-perfused. Psychiatric appropriate mood and affect Objective Last Vital Signs Temp 37.2 C 11/18/24 07:05 Pulse 62 11/18/24 07:05 Resp 18 11/18/24 07:05 BP 109/59 L 11/18/24 07:05 Pulse Ox 94 11/18/24 07:05 Laboratory Results - last 24 hr 11/17/24 11/17/24 11/17/24 10:17 11:09 11:41 WBC 4.95 RBC 4.25 L Hgb 13.3 L Hct 38.9 L MCV 92 MCH 31.3 MCHC 34.2 RDW 12.8 Plt Count 144 MPV 9.9 Immature Gran % 0.2 Neutrophils % 54.4 Lymphocytes % 31.1 Monocytes % 11.5 Eosinophils % 2.2 Basophils % 0.6 Nucleated RBC % 0.0 Absolute Neutrophils 2.69 Absolute Lymphocytes 1.54 Absolute Monocytes 0.57 Absolute Eosinophils 0.11 Absolute Basophils 0.03 PT 10.6 INR 1.1 Sodium 142 Potassium 4.2 Chloride 103 Carbon Dioxide 30.1 Anion Gap 8.9 BUN 10 Creatinine 0.9 Est GFR (CKD-EPI 2020) 85.27 Glucose 157 H Hemoglobin A1c 5.6 Calcium 9.1 Magnesium 2.1 Total Bilirubin 0.7 AST 21 ALT 26 Alkaline Phosphatase 62 Ammonia Troponin I 6 6 Total Protein 7.1 Albumin 3.8 Triglycerides 51 Total Cholesterol 239 H LDL Cholesterol, Calc 165 H HDL Cholesterol 64 H Vitamin B12 1329 H TSH 1.26 Urine Color Urine Clarity Urine pH Ur Specific [place] Urine Protein Urine Ketones Urine Blood Urine Nitrite Urine Bilirubin Urine Urobilinogen Ur Leukocyte Esterase Urine RBC Urine WBC Ur Epithelial Cells Urine Crystals Urine Bacteria Urine Mucus Ur Culture Indicated? Urine Glucose Ethyl Alcohol < 3.0 COVID-19 Source Nasopharynx SARS-CoV-2 (PCR) Negative Influenza Type A (PCR) Negative Influenza Type B (PCR) Negative RSV (PCR) Negative Add-On Test Request DONE 11/17/24 11/17/24 11/17/24 11:50 13:16 14:51 WBC RBC Hgb Hct MCV MCH MCHC RDW Plt Count MPV Immature Gran % Neutrophils % Lymphocytes % Monocytes % Eosinophils % Basophils % Nucleated RBC % Absolute Neutrophils Absolute Lymphocytes Absolute Monocytes Absolute Eosinophils Absolute Basophils PT INR Sodium Potassium Chloride Carbon Dioxide Anion Gap BUN Creatinine Est GFR (CKD-EPI 2020) Glucose Hemoglobin A1c Calcium Magnesium Total Bilirubin AST ALT Alkaline Phosphatase Ammonia < 10 L Troponin I Cancelled Total Protein Albumin Triglycerides Total Cholesterol LDL Cholesterol, Calc HDL Cholesterol Vitamin B12 TSH Urine Color Yellow Urine Clarity Clear Urine pH 8.5 H Ur Specific [place] 1.015 Urine Protein 30 H Urine Ketones Negative Urine Blood Negative Urine Nitrite Negative Urine Bilirubin Negative Urine Urobilinogen 1.0 H Ur Leukocyte Esterase Negative Urine RBC Negative Urine WBC Negative Ur Epithelial Cells Negative Urine Crystals Negative Urine Bacteria Negative Urine Mucus Negative Ur Culture Indicated? No Urine Glucose Negative Ethyl Alcohol COVID-19 Source SARS-CoV-2 (PCR) Influenza Type A (PCR) Influenza Type B (PCR) RSV (PCR) Add-On Test Request 11/18/24 05:52 WBC 3.60 L RBC 3.92 L Hgb 12.2 L Hct 35.9 L MCV 92 MCH 31.1 MCHC 34.0 RDW 12.9 Plt Count 144 MPV 9.9 Immature Gran % 0.3 Neutrophils % 60.2 Lymphocytes % 23.6 Monocytes % 12.2 Eosinophils % 3.1 Basophils % 0.6 Nucleated RBC % 0.0 Absolute Neutrophils 2.17 Absolute Lymphocytes 0.85 L Absolute Monocytes 0.44 Absolute Eosinophils 0.11 Absolute Basophils 0.02 PT INR Sodium 143 Potassium 3.9 Chloride 106 Carbon Dioxide 30.8 Anion Gap 6.2 BUN 9 Creatinine 0.7 Est GFR (CKD-EPI 2020) 92.00 Glucose 111 H Hemoglobin A1c Calcium 8.9 Magnesium Total Bilirubin AST ALT Alkaline Phosphatase Ammonia Troponin I Total Protein Albumin Triglycerides Total Cholesterol LDL Cholesterol, Calc HDL Cholesterol Vitamin B12 TSH Urine Color Urine Clarity Urine pH Ur Specific [place] Urine Protein Urine Ketones Urine Blood Urine Nitrite Urine Bilirubin Urine Urobilinogen Ur Leukocyte Esterase Urine RBC Urine WBC Ur Epithelial Cells Urine Crystals Urine Bacteria Urine Mucus Ur Culture Indicated? Urine Glucose Ethyl Alcohol COVID-19 Source SARS-CoV-2 (PCR) Influenza Type A (PCR) Influenza Type B (PCR) RSV (PCR) Add-On Test Request PAWSS Have you Been Recently Intoxicated or Drunk Within the Last 30 days?: No Have you Ever Experienced Previous Episodes of Alcohol Withdrawal?: No Have you ever Experienced Withdrawal Seizures?: No Have you ever Experienced Delirium Tremens(DT)s?: No Have you ever undergone Alcohol Rehabilitation Treatment (i.e, inpt ot ou tpatient treatment programs)?: No Have you ever Experienced Blackouts?: No Have you ever Combined Alcohol with other Downers within the last 90 days?: No Have you ever Combined Alcohol with any other Substance of Abuse during the last 90 days?: No Positive Blood Alcohol level on Presentation? [PCS.BAL]: No Evidence of Increased Autonomic Activity (i.e. HR>120, tremor, sweating, agitation, nausea)?: No Result: 0 Time Spent with Patient Time Spent with Patient: 35-49 minutes Time was spent: preparing to see the patient(eg.review tests), obtaining and/or reviewing separately otained hiistory, ordering medications,tests, procedures, indepentently interpreting results and counseling the patient
[2024-11-18 11:25] VITALS: BP 116/62; PULSE 59; RESP 16; TEMP 36.9; O2SAT 96
--- NOTE | 2024-11-18 12:08 | PHA.REVIEW2 ---
Pharmacy Admission Review Admission Clinical Review Admission Pharmacy Review: Discharge planning issues (Acute) On deep vein thrombosis (DVT) prophylaxis (Acute) Seizure (Acute) finasteride (From Proscar) Adverse Reaction (Unknown, Verified 11/17/24 10:19) unknown tamsulosin HCl (From Flomax) Adverse Reaction (Verified 11/17/24 10:19) dizziness Resuscitation Status Full Code Height 5 ft 9 in Weight 85.502 kg Comments Comments/Follow Ups: Watch VS, labs and for med changes. Pharmacy Admission Review Renal Dosing Renal Dosing: BUN 9 mg/dL (7-18) 11/18/24 05:52 Creatinine 0.7 mg/dL (0.70-1.30) 11/18/24 05:52 Medications needing adjustments: Reviewed (Crcl ~81.4 mL/min using a SCr of 0.7 mg/dL. Current meds are okay) Anticoagulation Anticoagulation: Hgb 12.2 g/dL (13.5-17.5) L 11/18/24 05:52 Hct 35.9 % (40.0-50.0) L 11/18/24 05:52 Plt Count 144 10^3/uL (130-400) 11/18/24 05:52 INR 1.1 (0.9-1.1) 11/17/24 10:17 Creatinine 0.7 mg/dL (0.70-1.30) 11/18/24 05:52 DVT Prophylaxis: Reviewed Medications: Enoxaparin Opiate Usage Evaluate Pain Scale/Pains Meds: N/A Relevant Labs Relevant Labs: Sodium 143 mmol/L (136-145) 11/18/24 05:52 Potassium 3.9 mmol/L (3.5-5.1) 11/18/24 05:52 Chloride 106 mmol/L (98-107) 11/18/24 05:52 Magnesium 2.1 mg/dL (1.8-2.4) 11/17/24 10:17 Electrolytes, C-Reactive P, ESR: Reviewed DM Control DM Control: Glucose 111 mg/dL (74-106) H 11/18/24 05:52 Hemoglobin A1c 5.6 % (<5.7) 11/17/24 10:17 DM Control: Reviewed (No DM noted in medical history, A1c in normal range) Cardiac Review Cardiac Review: Troponin I Cancelled 11/17/24 13:16 BP, HR, EF%: Reviewed (BP and HR have been low to normal so far this admission) QTc Review QTc: Reviewed (QTc 434 from EKG done on admission) IV to PO Switch IV Medications: Reviewed Home Meds Home Med List reviewed: Reviewed (relevant home meds are currently ordered) Current Meds Current Medication Order Review: Intervened (Duplicate med orders discontinued.) Comments Comments/Follow Ups: Watch VS, labs and for med changes.
[2024-11-18 15:44] VITALS: BP 109/61; PULSE 59; RESP 20; TEMP 37.2; O2SAT 96
--- NOTE | 2024-11-18 17:07 | INITIAL_ITS ---
Date of service: 11/18/24 Time of Service: 11:30 Care Management Initial Assmt Initial Assessment Reason for Hospitalization: ? stroke Functional Status/Living Situation Patient Presentation: Lakhwinder presented to the ED yesterday with concerns for a stroke. He c/o lightheadedness and just not feeling himself. Work up was largely negative, but [facility] [place], EEG to evaluate for seizure. Today Lakhwinder was in the bedside chair when CM met with him. He looked younger than his stated age. He stated that his symptoms had resolved, but he is requiring MRI that can't be completed until tomorrow. He was very pleasant and easily conversed. 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 He travels throughout [place] on business trips. Business has been in his family for 7 generations!) Instrumental Activities of Daily Living (ADLs): Independent Activities/Hobbies/SocialSupport: very active. Runs, skis, does yoga Medications Medication Management: No Issues/Barriers identified Advance Directives Advance Directives: Do you have an Advance Directive: Y 07/11/13 13:15 AD On File at [facility]: N 07/25/22 11:47 Date Asked 11/17/24 11/17/24 10:07 AD Date Reviewed COLST On File at [facility] COLST Date Scanned Code Status Resuscitation Status Full Code Insurance Coverage/Financial Issues Insurance: Medicare Part A & B /[facility] Care Team Visit Care Team Role Provider Type Anastasiya Hunt NP NURSE PRACTITIONER Soheila Dooley, TARI Primary Care Provider NURSE PRACTITIONER Marva Stein, EXHIBITIONS CURATOR Other Providers SPEECH LANGUAGE PATHOLOGIST Elaina Verma, EXHIBITIONS CURATOR Other Providers SPEECH LANGUAGE PATHOLOGIST Fely Corbett Other Providers SPEECH LANGUAGE PATHOLOGIST Isabela Pro, EXHIBITIONS CURATOR Other Providers SPEECH LANGUAGE PATHOLOGIST Makeda Chandler, STEVIE Other Providers SPEECH LANGUAGE PATHOLOGIST Shannon Laird Other Providers OTHER Rema Shoemaker MD Emergency Provider [facility] STAFF PHYSICIAN Maximilian Swann MD Admit Provider [facility] STAFF PHYSICIAN Attending Provider Discharge Potential Discharge Needs: PCP F/U Appt (possible echo as outpatient) Anticipated Barriers to Discharge: None Identified Patient/Family Education Needs: Review discharge instructions, discuss Ask Me Three Transportation: Private vehicle Plan: Lakhwinder will likely be discharged after he receives his MRI results tomorrow. He will f/u with his PCP and continue per his plan of care. He will transport in a private vehicle. CM will continue to follow. Social Determinants of Health Screening Social Determinants of health last assessed in clinic: 11/18/24 Will the Patient Participate in the Screening?: Yes Do you worry about having a steady place to live?: no Problems where you live: no known problems In the past 12 months, have you had to go without electric, gas, oil or water in your home?: no 1. Within the past 12 months, we worried whether our food would run out before we got money to buy more.: Never true 2. Within the past 12 months, the food we bought just didn't last and we didn't have money to get more.: Never true Has lack of transportation kept you from medical appointments or from doing things needed for daily living?: no Has anyone in your life made you feel unsafe or unsupported?: no How hard is it for you to pay for the very basics like food, housing, medical care, and heating? Would you say it is:: Not hard at all Do you want help finding or keeping work or a job?: I do not need or want help If for any reason you need help with day-to-day activities such as bathing, preparing meals, shopping, managing finances, etc., do you get the help you need?: I get all the help I need How often do you feel lonely or isolated from those around you?: Never Do you speak a language other than Ken[place] at home?: No Does the patient want assistance with any of the above?: No PFSH All Active Problems (Updated 11/18/24 @ 10:08 by Anastasiya Hunt NP) Discharge planning issues (Acute) On deep vein thrombosis (DVT) prophylaxis (Acute) Seizure (Acute) Concern about stroke without diagnosis (Acute) Episodic lightheadedness (Acute) Right inguinal hernia (Acute) Abd/pelvis CT on 07/16/24: 1. The anterior right side of the urinary bladder extends a few cm into a right inguinal hernia. This extends approximately 4 cm into the hernia sac. There are no accompanying bowel loops within the he rnia sac. 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 Brother No problems noted. Maternal Grandfather , age 79 Heart disease Paternal Grandfather , age74 Heart disease Maternal Grandmother No problems noted. Paternal Grandmother , age 89 No problems noted. Son No problems noted. Social History (Updated 06/22/23 @ 13:03 by Chichi Dugan) Smoking/Tobacco Use Status: Former Tobacco Use Tobacco: How many years used: 3 Second Hand Exposure: Yes Smoking risk assessment performed?: Yes Alcohol Intake: current Alcohol Intake frequency: a few times a month Alcohol type: wine Drug use: Never Substance use type: does not use Caregiver/Support person: No Household members: none Housing: house Number of Children: 2 Communication Needs: None Do you need help understanding health information?: Never current occupation: Retired described his first kid when he was 52 Pets and animals: No Sexually active: Yes Do you think of yourself as: straight/heterosexual Current gender identity: male What is your relationship status?: How often do you talk on the phone with friends or family?: three or more times per week How often do you get together with friends or relatives?: twice per week How often do you attend baptist or yarsani services?: decline to answer Do you belong to any clubs or organized social groups?: yes Panel score (0-1 are the most socially isolated patients): 2 What type of physical activity do you participate in: weight lifting, other Details: golf and running Duration: > 90 minutes/day Frequency: 5-6 times per week Rhina/Latter Day: Jewish Special rhina needs: No Agree to transfusion: Yes Seatbelt use: always Helmet use: Yes Helmet use: always Drive intox or ride w/intox regional otr company driver: No Working smoke detector in home: Yes Firearms in home: Yes Do you feel safe at home: Yes Do you feel safe in your relationship?: Yes Victim of physical abuse: No Victim of emotional abuse: No Victim of sexual abuse: No Readmission Within the Past 30 Days Yes or No: No
[2024-11-18 19:07] VITALS: BP 133/68; PULSE 65; RESP 20; TEMP 37.1; O2SAT 97
[2024-11-18 23:23] VITALS: BP 109/67; PULSE 61; RESP 20; TEMP 36.7; O2SAT 95
[2024-11-19 05:27] VITALS: BP 117/61; PULSE 63; RESP 20; TEMP 37; O2SAT 95
[2024-11-19 07:37] VITALS: BP 118/67; PULSE 62; RESP 20; TEMP 37.4; O2SAT 95
--- NOTE | 2024-11-19 08:00 | DI.MRI_ITS ---
Exam(s) MR BRAIN WO/W EXAM: MR BRAIN WO/W CLINICAL HISTORY: stroke TECHNIQUE: Multiplanar multisequence MRI of the brain was performed. Both noninfused and contrast i nfused sequences were performed. IV Contrast injected was 17 cc Dotarem. COMPARISON: MR MR BRAIN WO from 12/26/[address] BRAIN NECK CTA from 11/17/2024 FINDINGS: CEREBRAL PARENCHYMA: No evidence of intracranial hemorrhage, mass effect nor shift of midline structu re. No extraaxial fluid collections. Ventricles are not enlarged nor shifted. There is no significant focal signal abnormality in the cerebellar hemispheres nor within the shaina, m idbrain, and thalami. There are multiple confluent and non confluent foci of FLAIR bright signal abnormality in the para ve ntricular regions, not associated with restricted diffusion. However, there are few small bilateral tiny foci of enhancement at these locations seen only on the 1st T1 weighted post contrast injected a xial sequence; less evident on the subsequent postcontrast sequences.. There is no restricted diffus ion at these levels. No microhemorrhages evident. There are no ring enhancing lesions in the brain. DWI: No areas of restricted diffusion to suggest acute ischemic event. SWI: No microhemorrhages evident. There are no true ring enhancing lesions in the brain. PITUITARY GLAND: No mass nor parasellar abnormality. No obvious abnormality in the cavernous sinuses. FLOW VOIDS: The expected flow void are noted. No evidence of obvious aneurysm nor obvious vascular ma lformation. PARANASAL SINUSES: Mild mucosal thickening right maxillary sinus. ORBITS: No obvious abnormal findings. IMPRESSION: 1. There are multiple foci of periventricular confluent signal abnormality consistent with chronic sm all vessel disease. 2. There are a few bilateral tiny arterial phase only foci of enhancement within the above described areas of signal abnormality. These do not appear to be ring-enhancing lesions and are doubtful for m etastatic disease. These enhance only transiently on the 1st post contrast injected sequence. Suspe ct that these are related to chronic ischemic disease. DATA REPOSITORY:
[2024-11-19] MEDS: Gadoterate meglumine 20 ML SYRINGE 17 ML IVP (08:20)
[2024-11-19] MEDS: Normal Saline Flush 10 ML SYR IVP ×2 (08:21→09:10)
[2024-11-19] MEDS: Docusate Sodium 100 MG CAP PO (09:08)
[2024-11-19] MEDS: Vitamins B Comp w/C TAB 1 TAB PO (09:08)
[2024-11-19] MEDS: Cholecalciferol (Vitamin D3) 1,000 UNIT TAB 2000 UNITS PO (09:08)
[2024-11-19] MEDS: Enoxaparin 40 MG/0.4 ML SYR SC (09:08)
[2024-11-19] MEDS: Multivitamin TAB 1 TAB PO (09:09)
[2024-11-19] MEDS: Aspirin 81 MG CHEW PO (09:09)
[2024-11-19] MEDS: Omega-3 Fatty Acids 1000 MG CAP PO (09:09)
[2024-11-19] MEDS: Clopidogrel 75 MG TAB PO (09:09)
--- NOTE | 2024-11-19 09:15 | STREC_ITS ---
Date of service: 11/19/24 Time of Service: 09:18 Speech Therapy Recommendations Report ST Recommendations: FOOD BEVERAGE MANAGER consultation received for communication issues. Patient admitted 11/17/24 with cough, 'feeling not in body', brain fog, sleepiness, and reported word find ing issues. CVA workup was recommended in light of prior hx CVA. Per nursing, symptoms have fully resolved and no residual FOOD BEVERAGE MANAGER concerns. Workup has been negative to date, MRI findings pending. This clinician spoke briefly with patient who denied residual symptoms or need for further evaluation. No evidence of dysarthria/aphasia. FOOD BEVERAGE MANAGER consultation no longer indicated - no further FOOD BEVERAGE MANAGER needs.
--- NOTE | 2024-11-19 09:15 | PDOC.STREC ---
Date of service: 11/19/24 Time of Service: 09:18 Speech Therapy Recommendations Report ST Recommendations: DIRECTOR FOOD AND BEVERAGE consultation received for communication issues. Patient admitted 11/17/24 with cough, 'feeling not in body', brain fog, sleepiness, and reported word finding issues. CVA workup was recommended in light of prior hx CVA. Per nursing, symptoms have fully resolved and no residual DIRECTOR FOOD AND BEVERAGE concerns. Workup has been negative to date, MRI findings pending. This clinician spoke briefly with patient who denied residual symptoms or need for further evaluation. No evidence of dysarthria/aphasia. DIRECTOR FOOD AND BEVERAGE consultation no longer indicated - no further DIRECTOR FOOD AND BEVERAGE needs.
--- NOTE | 2024-11-19 10:01 | DSE_ITS ---
Date of service: 11/19/24 Time of Service: 10:02 DS: Diagnosis Discharge Diagnosis (1) Stroke: Status: Chronic (2) Seizure: Status: Acute Discharge Plan Disposition Patient Disposition: Home Specific Critical Access Facility: Other Condition: Stable Discharge Details Reason For Visit: Stroke Admit Date/Time: 11/17/24 12:55 Admit Provider: Maximilian Swann Attending Provider: Maximilian Swann Primary Care Provider: Soheila Dooley Hospital Course Hospital Course: This is an 84-year-old male patient with past medical history significant for CVA, hyperlipidemia declines treatment who presented to the emergency department with an episode of altered mental status to include dizziness and motor/sensory abnormality. His symptoms had resolved by the time he arrived to the emergency department. He underwent a CTA which was negative for large vessel occlusion. Labs unremarkable. He was evaluated by teleneurology with recommendations for stroke workup to include MRI with and without contrast, TTE with bubble study, EEG, Daily aspirin, clopidogrel load of 300 mg then 75 mg daily and high-dose statin. Patient declines a statin which she has in the past as well. He remained hemodynamically stable on the medical surgical unit with no recurrence of his symptoms. On telemetry he remained in sinus rhythm. He remained at his baseline with no new complaints. We were able to complete MRI and EEG. He will need outpatient echocardiogram with bubble study. He will follow-up outpatient with his primary care provider for further recommendations. He is being discharged home on a cardiac event recorder. Prescription sent for clopidogrel until his stroke workup has been completed. Discharge discussed with Dr. Montano Breeden Meds and New Rx's Prescriptions: New clopidogrel 75 mg Tablet 75 mg PO DAILY Qty: 30 0RF Continued aspirin 81 mg tablet,chewable 81 mg PO DAILY multivitamin Tablet 1 tab PO DAILY B-complex with vitamin C Tablet 1 tab PO DAILY cholecalciferol (vitamin D3) 50 mcg (2,000 unit) capsule 50 mcg PO DAILY omega 2-uxy-crh-fish oil [Fish Oil] 60-90-500 mg capsule 2 cap PO DAILY sildenafil 50 mg tablet 50 mg PO DAILY PRN (Reason: sexual activity) Qty: 20 3RF Rx Instructions: administer 30 minutes to 4 hours before activity Discharge Instructions Instructions: Transient ischemic attack Additional Instructions: take medications as prescribed. A statin, cholesterol lower medication, was advised for stroke prevention by the neurologist that evaluated you and the hospitalist team as standard of care. You have declined this medication. Please discuss with primary care provider, reaching out if you change your mind. Referrals: Soheila Dooley NP [Primary Care Provider] - Activity:: Activity as Tolerated Equipment/Supplies:: No Equipment Needed Diet:: Normal Diet Discharge Orders Discharge Orders: Discharge Order (Routine); Ordered 11/19/24 Ordered By: Anastasiya Hunt Other Ambulatory Orders: Cardiac Event Recorder (Routine) Timeframe: 20241119 Facility: [facility] - Location: Respiratory Therapy Ordered By: Anastasiya Hunt US echocardiogram w bubbles (Routine) Timeframe: 10 Day Facility: [facility] - Location: DIAGNOSTIC IMAGING Ordered By: Anastasiya Hunt DS: Summary Time Spent with Patient providing and/or coordinating discharge services: Greater than 30 minutes Status at Discharge Functional status at discharge: independent ambulation Overall status at discharge: patient is back to baseline Mental Status: mental status grossly normal Speech and Movement: speech and movement normal Mood: congruent mood Affect: normal affect Quality:SDOH Health Related Social Needs: No Data to Display Exam Narrative Exam Narrative: Well-appearing male younger than stated age no acute distress head is atraumatic eyes nonicteric noninjected EOMs intact. Facial features symmetrical. awake alert oriented no focal deficits cranial nerves II through XII grossly intact. Oral mucosa moist neck full range of motion. Respirations even and unlabored cardiovascular regular rate and rhythm no murmurs appreciated. Moves all extremities equal strength 5 out of 5 able to perform [id number] with no ataxia bilaterally no peripheral edema skin is pink warm dry well-perfused. Psychiatric appropriate mood and affect Psych Mental Status: mental status grossly normal Speech and Movement: speech and movement normal Mood: congruent mood Affect: normal affect DS: Data Vitals/I&O Vitals and I&O: Vital Signs Temperature 37.4 C 11/19/24 07:37 Temperature Source Temporal Artery Scan 11/19/24 07:37 Pulse 62 11/19/24 07:37 Pulse 62 11/17/24 13:29 Respiratory Rate 20 11/19/24 07:37 Respiratory Effort Normal 11/17/24 10:23 Respiratory Depth Normal 11/17/24 10:23 Respiratory Pattern Normal 11/17/24 10:23 Blood Pressure 118/67 11/19/24 07:37 Blood Pressure Mean 81 11/17/24 13:29 Blood Pressure Position Supine 11/17/24 10:16 Pulse Oximetry 95 11/19/24 07:37 Oxygen Delivery Method Room Air 11/19/24 07:37 Oxygen Flow Rate 0 11/19/24 07:37 Pain Level 0 11/19/24 07:37 Intake & Output 11/18/24 11/18/24 11/19/24 11:59 23:59 11:59 Intake Total 480 / 1320 840 / 1320 Balance 480 / 1320 840 / 1320 Intake: Oral 480 / 1320 840 / 1320 Other: Urine Color Yellow Urine Appearance Clear Urine Odor None Comment 1x 1x independent voided independently on toilet PFSH All Active Problems (Updated 11/19/24 @ 10:12 by Anastasiya Hunt NP) TIA (transient ischemic attack) (Acute) Discharge planning issues (Acute) On deep vein thrombosis (DVT) prophylaxis (Acute) Seizure (Acute) Concern about stroke without diagnosis (Acute) Episodic lightheadedness (Acute) Right inguinal hernia (Acute) Abd/pelvis CT on 07/16/24: 1. The anterior right side of the urinary bladder extends a few cm into a right inguinal hernia. This extends approximately 4 cm into the hernia sac. There are no accompanying bowel loops within the hernia sac. 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 Brother No problems noted. Maternal Grandfather , age 79 Heart disease Paternal Grandfather , age74 Heart disease Maternal Grandmother No problems noted. Paternal Grandmother , age 89 No problems noted. Son No problems noted. Social History (Updated 06/22/23 @ 13:03 by Chichi Dugan) Smoking/Tobacco Use Status: Former Tobacco Use Tobacco: How many years used: 3 Second Hand Exposure: Yes Smoking risk assessment performed?: Yes Alcohol Intake: current Alcohol Intake frequency: a few times a month Alcohol type: wine Drug use: Never Substance use type: does not use Caregiver/Support person: No Household members: none Housing: house Number of Children: 2 Communication Needs: None Do you need help understanding health information?: Never current occupation: Retired described his first kid when he was 52 Pets and animals: No Sexually active: Yes Do you think of yourself as: straight/heterosexual Current gender identity: male What is your relationship status?: How often do you talk on the phone with friends or family?: three or more times per week How often do you get together with friends or relatives?: twice per week How often do you attend tenriism or lutheran services?: decline to answer Do you belong to any clubs or organized social groups?: yes Panel score (0-1 are the most socially isolated patients): 2 What type of physical activity do you participate in: weight lifting, other Details: golf and running Duration: > 90 minutes/day Frequency: 5-6 times per week Rhina/Lutheran: Oriental Orthodox Special rhina needs: No Agree to transfusion: Yes Seatbelt use: always Helmet use: Yes Helmet use: always Drive intox or ride w/intox newspaper 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
--- NOTE | 2024-11-19 12:50 | PDOC.EEG ---
Neurology EEG EEG: [facility] Department of Neurology INPATIENT EEG REPORT Date of Recordin11/19/24 Interpreting Physician: Dr. Rema Borrego Reason for study: Lakhwinder Randall is an 84 year-old admitted after an episode of altered mental status, dizziness, and weakness that fully resolved, possibly due to seizure. Current Medications: Home Medications ?Medication ?Instructions ?Recorded ?Confirmed ?Type aspirin 81 mg chewable tablet 81 mg PO DAILY 01/06/21 11/17/24 History B-complex with vitamin C 1 tab PO DAILY 08/09/24 11/17/24 History cholecalciferol (vitamin D3) 50 50 mcg PO DAILY 08/09/24 11/17/24 History mcg (2,000 unit) capsule multivitamin 1 tab PO DAILY 08/09/24 11/17/24 History omega 1-gbs-kif-fish oil 60 mg-90 2 cap PO DAILY 08/09/24 11/17/24 History mg-500 mg capsule (Fish Oil) sildenafil 50 mg tablet 50 mg PO DAILY PRN sexual activity 09/11/24 11/17/24 Rx #20 tabs clopidogrel 75 mg tablet 75 mg PO DAILY #30 tabs 11/19/24 Rx METHODS: A 21 channel digitized electroencephalogram was performed in the [facility] Med/Surg Floor or ICU. The 10/20 international system of electrode placement was used and bipolar and referential electrode montages were recorded. In addition to EEG the patient was monitored for EKG and lateral/vertical eye movements. Activation procedures of photic stimulation and hyperventilation were performed if applicable. Video was used during activation procedures and during events where applicable. The duration of the recording was 30 minutes. DESCRIPTION OF EEG: The patient was noted to be awake, drowsy, and asleep during the recording. During maximal wakefulness a 9.5-Hz posterior background rhythm was present which was well-modulated, symmetrical, reactive to eye opening, and of moderate voltage. With eye opening the background activity changed to a low voltage mixture of alpha, beta, and occasional theta range frequencies. Faster frequencies were present in the bilateral anterior head regions. There was a normal anterior-posterior voltage gradient. During drowsiness, there was attenuation of the posterior dominant background rhythm and vertex waves. Stage II sleep was present with symmetrical sleep spindles, K-complexes, and vertex waves. Activating Procedures: Photic stimulation was performed which produced no posterior driving response. Hyperventilation was performed with moderate effort and produced no physiological slowing of the background. EKG: EKG revealed normal sinus rhythm. INTERPRETATION: This EEG is normal during the awake and sleep states as well as during photic stimulation and hyperventilation. PRIOR EEG: none CLINICAL CORRELATION: No focal regions of cerebral dysfunction or epileptiform activity was present. Epilepsy remains a clinical diagnosis and a normal EEG does not rule out epilepsy. Clinical correlation is advised. Rema Borrego MD Date of service: 11/19/24
--- NOTE | 2024-11-19 13:22 | PDOC.CMDIS ---
Date of service: 11/19/24 Time of Service: 13:22 LACE Index Scoring Tool Questions: Length of Stay (in days): 2 Was the patient admitted via the E.D.?: Yes Comorbidities: Cerebrovascular Disease E.D. Visits: 1 Answers: Total Score: 7 Risk of Readmission: Low Risk Care Management Discharge Plan Reason for Hospitalization: r/o stroke Discharge Plan: Lakhwinder was discharged earlier today with no new services. He will f/u with his PCP and continue per his plan of care. Lakhwinder was driven home by a friend. Patient/Family Education Needs: Review of discharge instructions, activity, limitations and discuss ask me 3. SDOH Health Related Social Needs: No Data to Display
== END 2024-11-19 12:46 | disposition home or self-care (01) ==
LOC: ER 12:09 → MS 13:48
PROVIDERS: Nurse Practitioner Acute Care; Admitting Provider Family Medicine; Emergency Provider Emergency Medicine; PCP Nurse Practitioner Family; Responsible Provider Nurse Practitioner Acute Care; Visit Provider Family Medicine
DX: G45.9 Transient cerebral ischemic attack, unspecified (principal); R56.9 Unspecified convulsions; Z79.899 Other long term (current) drug therapy; I67.89 Other cerebrovascular disease; Z86.73 Personal history of transient ischemic attack (TIA), and cerebral infarction without residual deficits; R42 Dizziness and giddiness; R53.1 Weakness; E78.5 Hyperlipidemia, unspecified; R05.9 Cough, unspecified; R40.0 Somnolence; K40.90 Unilateral inguinal hernia, without obstruction or gangrene, not specified as recurrent; R20.2 Paresthesia of skin; Z96.652 Presence of left artificial knee joint
CPT/HCPCS: 00123; 36415; 36416; 70496; 70498; 70553; 80048; 80053; 80061; 82962; 87637; 93005; 95819; 96372; 96374; 97161; 97530; 99291; J1650; 71046; 80320; 81003; 81015; 82140; 82607; 83036; 83735; 84443; 84484; 85025; 85610; 87086; 93010; 99223; 99233; 99239; G0378; J3490

== ENCOUNTER → 2024-11-19 15:07 | Outpatient (BNVA) | payer MEDICARE, BC, SELFPAY | PROVIDERS: PCP Nurse Practitioner Family; Referring Provider Nurse Practitioner Family; Visit Provider Psychiatry & Neurology Neurology ==

== ENCOUNTER 2024-11-27 12:14 | Outpatient (CLI) | payer MEDICARE, BC, SELFPAY ==
--- NOTE | 2024-11-27 11:30 | DI.RAD_ITS ---
Exam(s) XR CHEST 2V PA LATERAL EXAM: XR CHEST 2V PA LATERAL CLINICAL HISTORY: Productive cough J18.9 PNEUMONIA TECHNIQUE: 2D digital imaging was performed of the chest. Two images were obtained. PA and lateral views were obtained. COMPARISON: CR,XR XR CHEST 2V PA LATERAL from 11/17/2024 FINDINGS: MEDIASTINUM: Normal. HEART: Normal. PULMONARY VASCULATURE: Normal. LUNGS: There are increased markings in the retrocardiac region of the left lower lobe suggesting and pneumonia. The right lung is clear. PLEURAL SPACE: No pleural effusion or pneumothorax. BONE:Within normal limits for the patient's age. OTHER FINDINGS:Normal. IMPRESSION: Findings suspicious for left lower lobe pneumonia. DATA REPOSITORY: RADIATION DOSE DELIVERED:
== END 2024-11-27 12:34 ==
LOC: DI 12:15
PROVIDERS: PCP Nurse Practitioner Family; Visit Provider Physician Assistant Medical
DX: J18.9 Pneumonia, unspecified organism (principal)
CPT/HCPCS: 71046

== ENCOUNTER 2025-05-14 08:29 | Emergency (ER) | payer MEDICARE, BC, SELFPAY ==
--- NOTE | 2025-05-14 08:30 | DI.RAD_ITS ---
Exam(s) XR CHEST 2V PA LATERAL EXAM: XR CHEST 2V PA LATERAL CLINICAL HISTORY: right lower posterior pain after fall TECHNIQUE: 2D digital imaging was performed of the chest. Two images were obtained. PA and lateral views were obtained. COMPARISON: CR XR CHEST 2V PA LATERAL from 11/27/2024 FINDINGS: MEDIASTINUM: Normal. HEART: Normal. PULMONARY VASCULATURE: Normal. LUNGS: Clear. PLEURAL SPACE: No pleural effusion or pneumothorax. BONE:Within normal limits for the patient's age. OTHER FINDINGS:Normal. IMPRESSION: No acute pulmonary findings. DATA REPOSITORY: RADIATION DOSE DELIVERED:
[2025-05-14 08:33] VITALS: BP 163/80; PULSE 60; RESP 18; TEMP 36.6; O2SAT 98
--- NOTE | 2025-05-14 08:39 | W.ED.GENAD ---
Discharge Plan Disposition Patient Disposition: Home Condition: Good Discharge Details Clinical Impression: Concussion, Abrasion head, Muscle strain, Back pain, Fall Primary Care Provider: Soheila Dooley ED Provider: Mery Head Home Meds and New Rx's Prescriptions: Continued aspirin 81 mg tablet,chewable 81 mg PO DAILY multivitamin Tablet 1 tab PO DAILY B-complex with vitamin C Tablet 1 tab PO DAILY cholecalciferol (vitamin D3) 50 mcg (2,000 unit) capsule 50 mcg PO DAILY omega 5-fyx-eqk-fish oil [Fish Oil] 60-90-500 mg capsule 2 cap PO DAILY sildenafil 50 mg tablet 50 mg PO DAILY PRN (Reason: sexual activity) Qty: 20 3RF Rx Instructions: administer 30 minutes to 4 hours before activity Discharge Instructions Instructions: Low Back Pain ED, Concussion, Adult ED Additional Instructions: As we discussed, your imaging here is reassuring. However, I am concerned that you suffered a concussion based on your symptoms around the time of the incident. Please encourage brain rest. Drink plenty of fluids. While you may go for walks, please go assisted with somebody in the event that you should suffer another fall. Sometimes, after a concussion, people suffer from balance issues that may put you at increased risk. Please avoid screens as this can worsen your symptoms for at least the next 24 hours. Please stay with friends or have them check on you frequently- if you should have any increased confusion, headaches, visual change, sensation change, weakness, nausea or vomiting or other new/worsening symptoms, please seek care urgently once again. Regarding her back pain, this did start initially over the lower ribs, your chest x-ray does not show any significant fractures. Your symptoms seem to be more muscular in nature. I encourage you to abstain from any heavy lifting or rigorous exercise, walking can help to release these muscles as can warm compresses or warm showers. Gentle stretching. May use Tylenol and/or ibuprofen as needed for discomfort, please take as directed on packaging. Please follow-up with your primary care for reevaluation the end of the week. Referrals: Soheila Dooley NP [Primary Care Provider, Medicine] Discharge Data Discharge Date/Time-TO BE ENTERED AT DEPARTURE: 05/14/25 10:11 HPI General Date/Time Provider Initiated Documentation: 05/14/25 08:30. Limitations to Documentation: no limitations (confused about fall but otherwise clear). Information obtained by: patient, family (friend) and RN notes reviewed. History of Present Illness 84 year old M presents to the emergency department with the chief complaint of mechanical fall, struck back of head, confused and bleeding, described as mild (denies any significant pain now), Quality is described as aching (tight right low rib area, muscle pain), Patient started experiencing this minute(s) and it has been constant. No relieving factors improve symptom(s), No exacerbating factors reported . Patient notes confusion (does not remember fall); denies chest pain, cough, fever/chills, headaches, malaise, nausea/vomiting, seizure, shortness of breath, syncope and weakness. Patient did receive the following treatments prior to arrival, none Related Data Home Medications ?Medication ?Instructions ?Recorded ?Confirmed aspirin 81 mg chewable tablet 81 mg PO DAILY 01/06/21 05/14/25 B-complex with vitamin C 1 tab PO DAILY 08/09/24 05/14/25 cholecalciferol (vitamin D3) 50 50 mcg PO DAILY 08/09/24 05/14/25 mcg (2,000 unit) capsule multivitamin 1 tab PO DAILY 08/09/24 05/14/25 omega 9-uko-mzr-fish oil 60 mg-90 2 cap PO DAILY 08/09/24 05/14/25 mg-500 mg capsule (Fish Oil) sildenafil 50 mg tablet 50 mg PO DAILY PRN sexual activity 09/11/24 05/14/25 #20 tabs Previous Rx's ?Medication ?Instructions ?Recorded sildenafil 50 mg tablet 50 mg PO DAILY PRN sexual activity 09/11/24 #20 tabs Allergies Allergy/AdvReac Type Severity Reaction Status Date / Time finasteride (From Proscar) AdvReac Unknown unknown Verified 05/14/25 08:38 tamsulosin HCl (From Flomax) AdvReac dizziness Verified 05/14/25 08:38 General Stated Complaint: Fall/Non TraumaCriteria JAMES: 3 Review of Systems Constitutional Constitutional: Reports as per HPI, Denies fever(s), Denies headache(s) and Denies weakness Eyes Eyes: Reports as per HPI, Denies blurry vision, Denies change in vision and Denies loss of vision ENT Ears, Nose, Mouth, and Throat: Denies headache(s) Cardiovascular Cardiovascular: Reports as per HPI, Denies chest pain and Denies dyspnea Respiratory Respiratory: Reports as per HPI, Denies cough, Denies pain on inspiration, Denies pain with cough and Denies dyspnea Gastrointestinal Gastrointestinal: Reports as per HPI, Denies abdominal pain, Denies nausea and Denies vomiting Genitourinary Genitourinary: Reports as per HPI and Denies urinary incontinence Musculoskeletal Musculoskeletal: Reports as per HPI Integumentary/Breasts Skin/Breast: Reports as per HPI Neurologic Neurologic: Reports as per HPI, Denies headache(s), Denies lack of coordination, Denies localized weakness, Denies loss of vision, Denies seizure-like activity, Denies paresthesias and Denies weakness Exam Const General: cooperative, healthy appearing, comfortable, no acute distress, well developed and well groomed Nutritional Appearance: average body habitus and well nourished Orientation: alert, awake and oriented x3 HENMT Head: normal to inspection, no palpable skull fracture, normocephalic and abrasion (posterior crown of the head, no continued bleeding) Ears: hearing grossly normal bilaterally and external ears normal General nose exam: external nose normal Mouth: oral mucosae normal, lip normal and tongue normal Throat: posterior oropharynx normal Eyes General: appearance normal, both eyes and all related structures Visual Elizabeth: normal visual elizabeth by confrontation Alignment and Position: alignment normal Periorbital: periorbital findings normal Eyelids: eyelids normal Conjunctivae: conjunctivae normal Pupils: PERRL EOM: EOM intact bilaterally Neck Neck: normal visual inspection, full ROM, no lymphadenopathy, trachea midline and supple Chest Chest: normal inspection of the chest, normal palpation of entire chest wall, no crepitus and tenderness Resp Effort & Inspection: normal respiratory effort, able to speak in complete sentences and no respiratory distress Auscultation: clear to auscultation bilaterally, no rales, no rhonchi and no wheezes Cardio Rate: regular rate Rhythm: regular rhythm Heart Sounds: S1 normal and S2 normal GI Inspection: normal to inspection, no abdominal wall ecchymosis and non-distended Palpation: soft, not firm, no guarding, not rigid and nontender Back/Spine/Pelvis Back: no CVA tenderness Cervical Spine: normal cervical lordosis and cervical ROM normal Thoracic/Lumbar Spine: thoracic and lumbar spine normal to inspection, thoraco-lumbar ROM normal, No thoraco-lumbar spasm and No thoracic spinal tenderness Pelvis: no pain with anterior-posterior compression and no pain with lateral compression Back/spine/pelvis image:  1. area of discomfort. Has some spasm near the T spine but no midline pain or pain over the spasm. No ecchymosis or evidence of trauma. Lungs are clear. Neuro General: patient alert, patient awake, patient oriented x3, gait normal, tone normal and moves all extremities Cranial Nerves: CN's II-XI intact bilaterally Cognition: normal cognition Speech: speech normal Gait: normal gait Motor: muscle tone normal throughout and strength 5/5 throughout Sensory Exam: no sensory deficits noted (no saddle paresthesias) Extrem General: normal to inspection, full ROM, capillary refill normal, no pedal edema and no calf tenderness Course Vital Signs Vital signs: Vital Signs Temperature 36.6 C 05/14/25 08:33 Pulse 60 05/14/25 08:33 Respiratory Rate 18 05/14/25 08:33 Blood Pressure 163/80 H 05/14/25 08:33 Pulse Oximetry 98 05/14/25 08:33 Temperature 36.6 C 05/14/25 08:33 Pulse 60 05/14/25 08:33 Respiratory Rate 18 05/14/25 08:33 Blood Pressure 163/80 H 05/14/25 08:33 Pulse Oximetry 98 05/14/25 08:33 Medical Decision Making Patient is a pleasant 84-year-old gentleman, not anticoagulated, brought in by friend, presenting of a chief complaint of head injury after fall. Friend describes mechanical fall with dogs tripping the patient and him falling backwards striking his head. Unknown if the patient actually lost consciousness but was immediately confused and did not remember events immediately prior to the fall as well as immediately after the fall. However, he and friend described it being back to baseline and he is answering questions appropriate at this time. Also indicates right lower posterior ribs as area of discomfort but denies any shortness of breath or difficulty breathing. He describes more of a muscle pull. He did suffer a laceration for which friend put pressure on the wound and subsequently put an ice pack on, no active bleeding. Patient denies any significant headache, visual change, sensory or motor deficits. Has been ambulatory since the fall, cleansed wound. Patient appears nontoxic. He is resting comfortably no acute distress. Swelling and ice pack to his head but at this point, no significant laceration is able to be visualized. Will need to clean as hair is slightly matted down from blood but appears more to be of an abrasion rather than a large laceration. He is neurologically intact at this time. He has no pain with palpation of C-spine, good range of motion without any discomfort. No T, L or S spine tenderness. Abdomen is nontender, pelvis is stable and nontender. He ambulated without assistance. Patient does have some discomfort right posterior lateral chest wall but no palpable crepitus, no difficulty taking a deep inspiration. CT scan was reviewed by the radiologist, there is few areas of decreased attenuation of white matter consistent with chronic microvascular ischemic disease but no acute infarct, mass effect, hemorrhage. No skull fracture. Chest x-ray is also reviewed by myself and radiologist, no acute process was appreciated, no significant fracture or pneumothorax. Reevaluated the patient, he continues to do well. Not planing of any headache, nursing staff cleaning wound now,. More of an abrasion but will assess further. Will reassess area of tenderness but this seemed much more muscular given his description, describing now pain might be more migratory. Initially had been in the lower ribs as previously noted for which x-ray was obtained. Reevaluated the patient after wound was cleansed, note a superfiical abrasion to miky posterior crown- no active bleeding or deep wound. No indication for closure. We did discuss wound care as well as signs symptoms of infection and when to seek care urgently once again for the abrasion. In regard to the concussion, I did discuss postconcussive care with patient and his friend. He is also given at the time of discharge. He does have friends that are able to help him. Also encouraged supportive care. Encouraged hydration. Encouraged Tylenol and ibuprofen as needed for discomfort. Strict return precautions were discussed. All his questions and concerns were addressed and he is in agreement this plan. [facility] All Active Problems (Updated 05/14/25 @ 09:43 by LEIA Rae) Fall (Acute) Back pain (Acute) Muscle strain (Acute) Abrasion head (Acute) Concussion (Acute) TIA (transient ischemic attack) (Acute) Seizure (Acute) Concern about stroke without diagnosis (Acute) Episodic lightheadedness (Acute) Right inguinal hernia (Acute) Abd/pelvis CT on 07/16/24: 1. The anterior right side of the urinary bladder extends a few cm into a right inguinal hernia. This extends approximately 4 cm into the hernia sac. There are no accompanying bowel loops within the hernia sac. 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 Brother No problems noted. Maternal Grandfather , age 79 Heart disease Paternal Grandfather , age74 Heart disease Maternal Grandmother No problems noted. Paternal Grandmother , age 89 No problems noted. Son No problems noted. Social History Smoking/Tobacco Use Status: Former Tobacco Use Tobacco: How many years used: 3 Second Hand Exposure: Yes Smoking risk assessment performed?: Yes Alcohol Intake: current Alcohol Intake frequency: a few times a month Alcohol type: wine Drug use: Never Substance use type: does not use Caregiver/Support person: No Household members: none Housing: house Number of Children: 2 Communication Needs: None Do you need help understanding health information?: Never current occupation: Retired described his first kid when he was 52 Pets and animals: No Sexually active: Yes Do you think of yourself as: straight/heterosexual Current gender identity: male What is your relationship status?: How often do you talk on the phone with friends or family?: three or more times per week How often do you get together with friends or relatives?: twice per week How often do you attend christianity or samaritan services?: decline to answer Do you belong to any clubs or organized social groups?: yes Panel score (0-1 are the most socially isolated patients): 2 What type of physical activity do you participate in: weight lifting, other Details: golf and running Duration: > 90 minutes/day Frequency: 5-6 times per week Hrina/Rastafarian: Jainism Special rhina needs: No Agree to transfusion: Yes Seatbelt use: always Helmet use: Yes Helmet use: always Drive intox or ride w/intox wedding transportation driver: No Working smoke detector in home: Yes Firearms in home: Yes Do you feel safe at home: Yes Do you feel safe in your relationship?: Yes Victim of physical abuse: No Victim of emotional abuse: No Victim of sexual abuse: No
--- NOTE | 2025-05-14 08:55 | DI.CT_ITS ---
Exam(s) CT HEAD WO EXAM: CT HEAD WO CLINICAL HISTORY: struck posterior aspect, confusion. TECHNIQUE: Imaging Protocol: Axial computed tomography images with coronal and sagittal reformatted images were created and reviewed COMPARISON: CT CT BRAIN CTA from 12/30/[address] CAROTID NECK CTA from 01/01/[address] BRAIN NECK CTA from 11/17/2024 FINDINGS: Ventricles and Extra axial spaces: Normal in size and morphology for the patient's age. Hemorrhage: None. Cerebral parenchyma: There are areas of decreased attenuation in the white matter most consistent with chronic microvascular ischemic disease. There is no evidence of an acute territorial infarct or mass effect. Midline shift: None. Brainstem/Cerebellum: Normal. Calvarium: Normal. Visualized Paranasal sinuses/Mastoids: Clear. Soft Tissues: Unremarkable. IMPRESSION: No acute intracranial process. RADIATION DOSE DELIVERED: 853.02mGy.cm Total DLP DATA REPOSITORY: All CT scans at this facility are submitted to the National Radiology Data Registry (NRDR) Dose Index Registry (DIR) with the [employer] (A[employer]). RADIATION OPTIMIZATION: All CT scans at this facility use at least one of these dose optimization techniques: automated exposure control; mA and/or kV adjustment per patient size (includes targeted exams where dose is matched to clinical indication); or iterative reconstruction.
[2025-05-14 10:10] VITALS: BP 157/84; PULSE 65; RESP 15; O2SAT 98
== END 2025-05-14 10:11 | disposition home or self-care (01) ==
PROVIDERS: Emergency Provider Physician Assistant; PCP Nurse Practitioner Family
DX: S06.0XAA Concussion with loss of consciousness status unknown, initial encounter (principal); S00.81XA Abrasion of other part of head, initial encounter; M54.50 Low back pain, unspecified; W19.XXXA Unspecified fall, initial encounter
CPT/HCPCS: 99284; 99283; 70450; 71046